=== PATIENT | female | born 1960 | race Caucasian/White ===

== ENCOUNTER 2016-12-28 07:12 | Day surgery (SDC) | payer BC ==
[2016-12-28] MEDS ORDERED: Triamcinolone Acetonide 40 MG/ML 1 ML MDV ONE (07:17)
[2016-12-28] MEDS ORDERED: Bupivacaine 0.25%/EPINEPHrine 1:200,000 10 ML SDV ONE (07:18)
[2016-12-28] MEDS ORDERED: Lidocaine 2% 5 ML SDV ONE (07:18)
[2016-12-28] MEDS ORDERED: Midazolam 1 MG/ML 2 ML SDV ONE (07:18)
[2016-12-28] MEDS ORDERED: Bupivacaine 0.25% 10 ML SDV ONE (07:18)
[2016-12-28] MEDS ORDERED: fentaNYL 100 MCG/2 ML SDV ONE (07:18)
[2016-12-28] MEDS ORDERED: Propofol 200 MG/20 ML SDV ONE (07:18)
--- NOTE | 2016-12-28 07:57 | PCM.PREANE ---
Preanesthetic Assessment - Anesthesia/Transfusion/Family Hx Anesthesia History: Prior Anesthesia Reaction Other Type of Anesthesia Reaction Comment: only after hysterectomy Family History of Anesthesia Reaction: No Transfusion History: No Prior Transfusion(s) - Review of Systems General: No Symptoms Pulmonary: No Symptoms Cardiovascular: No Symptoms Gastrointestinal: No Symptoms Neurological: No Symptoms Other: Reports: None - Physical Assessment NPO Status Date: 12/27/16 Height: 1.68 m Weight: 81.193 kg ASA Class: 2 Mental Status: Alert & Oriented x3 Airway Class: Mallampati = 2 Dentition: Reports: Normal Dentition ROM/Head Extension: Full Lungs: Clear to Auscultation, Normal Respiratory Effort Cardiovascular: Regular Rate, Regular Rhythm - Allergies Allergies/Adverse Reactions: Allergies Allergy/AdvReac Type Severity Reaction Status Date / Time No Known Allergies Allergy Verified 12/26/16 16:37 - Anesthesia Plan Pre-Op Medication Ordered: None - Acknowledgements Anesthesia Type Planned: MAC Pt an Appropriate Candidate for the Planned Anesthesia: Yes Alternatives and Risks of Anesthesia Discussed w Pt/Guardian: Yes Pt/Guardian Understands and Agrees with Anesthesia Plan: Yes PreAnesthesia Questionnaire Other HEENT History: wears glasses/contacts - Past Surgical History HEENT Surgical History: Reports: Naso-Sinus Surgery Female Surgical History: Reports: Endometrial Ablation, Hysterectomy Musculoskeletal Surgical History: Reports: Arthroscopic Knee - SUBSTANCE USE Smoking Status *Q: Never Smoker Days Per Week of Alcohol Use: 0 Recreational Drug Use History: No - HOME MEDS Home Medications: Home Meds . [No Known Home Meds] 12/26/16 [History] - CURRENT (IN HOUSE) MEDS Current Meds: Current Medications Hydrocodone Bitart/Acetaminophen ([place] 325-5 Mg) 1 tab PO Q4H PRN PRN Reason: Pain Bupivacaine HCl (Sensorcaine-Mpf 0.25%) 10 ml INJECT ONETIME ONE Stop: 12/28/16 08:01 Cefazolin Sodium/Dextrose 2 gm (/ Premix) 50 mls @ 100 mls/hr IV ONETIME ONE Stop: 12/28/16 08:29 Lactated Ringer's (Ringers, Lactated) 1,000 mls @ 125 mls/hr IV ASDIRECTED SHANNON Last Admin: 12/28/16 07:44 Dose: 125 mls/hr Triamcinolone Acetonide (Kenalog-40) 20 mg INJECT ONETIME ONE Stop: 12/28/16 08:01 Discontinued Medications Bupivacaine HCl (Sensorcaine-Mpf 0.25%) Confirm Administered Dose 10 ml .ROUTE .STK-MED ONE Stop: 12/28/16 07:19 Bupivacaine HCl/Epinephrine Bitart (Marcaine 0.25%/Epinephrine 1:200,000) Confirm Administered Dose 10 ml .ROUTE .STK-MED ONE Stop: 12/28/16 07:19 Fentanyl (Sublimaze) Confirm Administered Dose 100 mcg .ROUTE .STK-MED ONE Stop: 12/28/16 07:19 Lidocaine (Xylocaine-Mpf 2%) Confirm Administered Dose 5 ml .ROUTE .STK-MED ONE Stop: 12/28/16 07:19 Midazolam HCl (Versed 1 Mg/Ml) Confirm Administered Dose 2 mg .ROUTE .STK-MED ONE Stop: 12/28/16 07:19 Propofol (Diprivan 20 Ml) Confirm Administered Dose 200 mg .ROUTE .STK-MED ONE Stop: 12/28/16 07:19 Triamcinolone Acetonide (Kenalog-40) Confirm Administered Dose 40 mg .ROUTE .STK -MED ONE Stop: 12/28/16 07:18
[2016-12-28] MEDS ORDERED: Lactated Ringers 1,000 ML IV SCH (08:00)
[2016-12-28] MEDS ORDERED: Bupivacaine 0.25% 10 ML SDV INJECT ONE (08:00)
[2016-12-28] MEDS ORDERED: Acetaminophen/HYDROcodone 325-5 MG Tab PO PRN (08:00)
[2016-12-28] MEDS ORDERED: Triamcinolone Acetonide 40 MG/ML 1 ML MDV INJECT ONE (08:00)
[2016-12-28] MEDS ORDERED: ceFAZolin 2 GM in Premix Bag 1 BAG IV ONE (08:00)
[2016-12-28] MEDS ORDERED: Sodium Chloride 0.9% 20 ML ONE (08:53)
[2016-12-28] MEDS ORDERED: ceFAZolin 1 GM Vial ONE (08:53)
--- NOTE | 2016-12-28 09:34 | PCM48HPAN ---
Post Anesthesia Note - EVALUATION WITHIN 48HRS OF ANESTHETIC Vital Signs in Normal Range: Yes Patient Participated in Evaluation: Yes Respiratory Function Stable: Yes Airway Patent: Yes Cardiovascular Function Stable: Yes Hydration Status Stable: Yes Pain Control Satisfactory: Yes Nausea and Vomiting Control Satisfactory: Yes Mental Status Recovered: Yes
[2016-12-28 09:56] VITALS: BP 136/86
--- NOTE | 2017-01-04 14:26 | PCM.OPNOTE ---
- General Post-Op/Procedure Note Date of Surgery/Procedure: 12/28/16 Operative Procedure(s): right carpal tunnel release and injection of left thumb cmc joint Pre Op Diagnosis: right carpal tunnel syndrome and left thumb cmc arthritis Post-Op Diagnosis: Same Anesthesia Technique: Local, MAC Primary Surgeon: Henrietta Dixon Client Architect: Lizabeth Alexis Complications: None Condition: Good Free Text/Narrative:: [id number]
--- NOTE | 2017-01-04 19:13 | OR ---
SURGEON: BA HOWARD MD DATE OF PROCEDURE: 12/28/2016 PREOPERATIVE DIAGNOSES: Right carpal tunnel syndrome and left thumb carpometacarpal joint arthritis. POSTOPERATIVE DIAGNOSES: Right carpal tunnel syndrome and left thumb carpometacarpal joint arthritis. PROCEDURE: Right carpal tunnel release and left thumb injection of carpometacarpal joint with Kenalog 40. ANESTHESIA: Local MAC. HOSPITAL RECEIVING CLERK: SEBASTIÁN Garner. INDICATIONS: Ms. Rubin is a 56-year-old female with right carpal tunnel syndrome. Risks and benefits of release were discussed with her and she was in agreement to proceed. Risks were including, but not limited to, bleeding, infection, damage to underlying or overlying structures, possible need for intervention and possible scarring. She was in agreement to proceed. PROCEDURE IN DETAIL: After informed consent was obtained and placed on the chart, the patient was brought to the operating theater and laid in supine position. After adequate local MAC anesthetic was obtained, the area was prepped and draped and a time- out was completed to confirm side and site. Attention was then paid to exsanguination of the arm and insufflation of the tourniquet to 200 mmHg after injection of local anesthesia. Attention was then paid to dissection of the transverse carpal ligament and a 15 blade was used to dissect through the skin and subcutaneous tissues until complete release of the ligament. Once adequately released and dissection distally and proximally had been completed under direct visualization the area was irrigated and of note, the recurrent motor branch of the nerve did come straight through the ligament itself, this was protected and freed well without compromise. Once adequately released and freed, the area was irrigated and closed using 5-0 nylon stitch in a horizontal mattress fashion for the skin. This was dressed with Xeroform, fluffs, and a Kerlix gauze dressing and a 2-inch Max wrap. Attention was then paid to the left thumb and under sterile technique a 27-gauge needle and a 1 mL of Kenalog 40 was injected into the left thumb carpometacarpal joint. She tolerated this well. All counts and needles were correct at the end of the case and this was dressed with Band-Aid. FOLLOWUP INSTRUCTIONS: The patient will see us in 2 weeks for suture removal, sooner if any problems, questions, or concerns. EDDIE / KARISSA /[id number]
== END 2016-12-28 09:50 | disposition home or self-care (01) ==
LOC: MW.SDS 07:12
PROVIDERS: ATTEND Plastic Surgery
DX: G56.01 Carpal tunnel syndrome, right upper limb (principal); M18.9 Osteoarthritis of first carpometacarpal joint, unspecified; F41.9 Anxiety disorder, unspecified; Z90.710 Acquired absence of both cervix and uterus; Z79.890 Hormone replacement therapy
CPT/HCPCS: 20600; 64721; J0690; J2250; J3010; J3301; J7120; 01810; J2704

== ENCOUNTER 2017-03-18 07:29 | Inpatient (IN) | payer BC ==
[~2017-03-18 07:29] MED LIST: Acetaminophen 1,000 MG in Premix Bag 1 BAG IV SCH; Famotidine 20 MG/2 ML SDV IVPUSH SCH; Ketorolac 30 MG/ML SDV IVPUSH SCH; Ropivacaine 49.25 ML, Ketorolac 30 MG, EPINEPHrine 0.5 MG, cloNIDine 80 MCG in Sodium C... INJECT ONE; Scopolamine 1.5 MG Transdermal Patch TRDERM SCH; ceFAZolin 2 GM in Premix Bag 1 BAG IV SCH; oxyCODONE ER 20 MG TAB.ER PO SCH
[2017-03-18] MEDS: Lactated Ringers 1,000 ML IV SCH ×2 (07:50→19:21)
[2017-03-18] MEDS ORDERED: Ondansetron 4 MG/2 ML SDV ONE (08:38)
[2017-03-18] MEDS ORDERED: Midazolam 1 MG/ML 2 ML SDV ONE (08:39)
[2017-03-18] MEDS ORDERED: Propofol 200 MG/20 ML SDV ONE (08:39)
[2017-03-18] MEDS ORDERED: fentaNYL 100 MCG/2 ML SDV ONE (08:39)
--- NOTE | 2017-03-18 09:05 | PCM.PREANE ---
Preanesthetic Assessment - Anesthesia/Transfusion/Family Hx Anesthesia History: Prior Anesthesia Reaction Other Type of Anesthesia Reaction Comment: only after hysterectomy Family History of Anesthesia Reaction: No Transfusion History: No Prior Transfusion(s) - Review of Systems General: No Symptoms Pulmonary: No Symptoms Cardiovascular: No Symptoms Gastrointestinal: No Symptoms Neurological: No Symptoms Other: Reports: None - Physical Assessment NPO Status Date: 03/17/17 O2 Sat by Pulse Oximetry: 96 Respiratory Rate: 16 Vital Signs: Last Vital Signs Temp 36.2 C 03/18/17 07:40 Pulse 72 03/18/17 07:40 Resp 16 03/18/17 07:40 BP 164/86 H 03/18/17 07:40 Pulse Ox 96 03/18/17 07:40 Height: 1.68 m Weight: 82.1 kg ASA Class: 1 Mental Status: Alert & Oriented x3 Airway Class: Mallampati = 1 Dentition: Reports: Normal Dentition ROM/Head Extension: Full Lungs: Clear to Auscultation, Normal Respiratory Effort Cardiovascular: Regular Rate, Regular Rhythm - Allergies Allergies/Adverse Reactions: Allergies Allergy/AdvReac Type Severity Reaction Status Date / Time No Known Allergies Allergy Verified 03/18/17 08:28 - Anesthesia Plan Pre-Op Medication Ordered: None - Acknowledgements Anesthesia Type Planned: Spinal Pt an Appropriate Candidate for the Planned Anesthesia: Yes Alternatives and Risks of Anesthesia Discussed w Pt/Guardian: Yes Pt/Guardian Understands and Agrees with Anesthesia Plan: Yes PreAnesthesia Questionnaire HEENT History: Reports: Other (See Below) Other HEENT History: wears glasses/contacts - Past Surgical History Head Surgeries/Procedures: Reports: None HEENT Surgical History: Reports: Naso-Sinus Surgery Female Surgical History: Reports: Endometrial Ablation, Hysterectomy Musculoskeletal Surgical History: Reports: Arthroscopic Knee - SUBSTANCE USE Smoking Status *Q: Never Smoker Days Per Week of Alcohol Use: 0 Recreational Drug Use History: No - HOME MEDS Home Medications: Home Meds . [No Known Home Meds] 03/13/17 [History] - CURRENT (IN HOUSE) MEDS Current Meds: Current Medications Famotidine (Pepcid) 40 mg IVPUSH ONARRIVE [facility] Last Admin: 03/18/17 08:06 Dose: 40 mg Cefazolin Sodium/Dextrose 2 gm (/ Premix) 50 mls @ 100 mls/hr IV ONCALL [facility] Lactated Ringer's (Ringers, Lactated) 1,000 mls @ 100 mls/hr IV ASDIRECTED [facility]ANN[facility] Last Admin: 03/18/17 07:50 Dose: 100 mls/hr Acetaminophen 1,000 mg/ Premix 100 mls @ 400 mls/hr IV ONCALL [facility] Last Admin: 03/18/17 08:11 Dose: 400 mls/hr Ketorolac Tromethamine (Toradol) 30 mg IVPUSH ONARRIVE [facility] Last Admin: 03/18/17 08:08 Dose: 30 mg Oxycodone HCl (Oxycontin) 20 mg PO ONARRIVE [facility] Last Admin: 03/18/17 07:50 Dose: 20 mg Scopolamine (Transderm-Scop) 1.5 mg TRDERM ONARRIVE [facility] Last Admin: 03/18/17 08:08 Dose: 1.5 mg Tranexamic Acid (Cyklokapron) 4,000 mg IV SEECOMMENT [facility] Discontinued Medications Fentanyl (Sublimaze) Confirm Administered Dose 100 mcg .ROUTE .STK-MED ONE Stop: 03/18/17 08:40 Ropivacaine 49.25 ml/Ketorolac Tromethamine 30 mg/Epinephrine HCl 0.5 mg/ Clonidine HCl 80 mcg/ Sodium Chloride 100 mls @ 50 mls/min INJECT ONETIME ONE Stop: 03/18/17 06:01 Midazolam HCl (Versed 1 Mg/Ml) Confirm Administered Dose 2 mg .ROUTE .STK-MED ONE Stop: 03/18/17 08:40 Ondansetron HCl (Zofran) Confirm Administered Dose 4 mg .ROUTE .STK-MED ONE Stop: 03/18/17 08:39 Propofol (Diprivan 20 Ml) Confirm Administered Dose 800 mg .ROUTE .STK-MED ONE Stop: 03/18/17 08:40 Tranexamic Acid (Cyklokapron) Confirm Administered Dose 4,000 mg .ROUTE .STK- MED ONE Stop: 03/18/17 07:54
[2017-03-18] MEDS ORDERED: Acetaminophen/HYDROcodone 325-10 MG Tab PO PRN (11:31)
[2017-03-18] MEDS ORDERED: Ondansetron 4 MG/2 ML SDV IV PRN (11:31)
[2017-03-18] MEDS ORDERED: Bisacodyl 10 MG Supp RECTAL PRN (11:32)
[2017-03-18] MEDS ORDERED: Aluminum Hydroxide/Magnesium Hydroxide/Simethicone Susp 30 ML Cup PO PRN (11:32)
[2017-03-18] MEDS ORDERED: diphenhydrAMINE 25 MG Cap PO PRN (11:32)
--- NOTE | 2017-03-18 11:41 | PCM.OPNOTE ---
- General Post-Op/Procedure Note Date of Surgery/Procedure: 03/18/17 Operative Procedure(s): L TKA Post-Op Diagnosis: DJD left knee Anesthesia Technique: Moderate Sedation, Spinal Primary Surgeon: Jessica Suero Fusing Machine Operator: Josefina Chin in mLs: 100 Condition: Good Free Text/Narrative:: tt=10 min Intake & Output #[id number] 03/17/17 03/18/17 03/18/17 22:59 06:59 14:59 Output Total 300 Balance -300
[2017-03-18] MEDS ORDERED: Morphine PF 30 MG/30 ML PCA Vial IV SCH (11:45)
--- NOTE | 2017-03-18 12:05 | PCM.POSTAN ---
POST ANESTHESIA ASSESSMENT - MENTAL STATUS Mental Status: Alert, Oriented - RESPIRATORY Respiratory Status: Respiratory Rate WNL, Airway Patent, O2 Saturation Stable - CARDIOVASCULAR CV Status: Pulse Rate WNL, Blood Pressure Stable - GASTROINTESTINAL GI Status: No Symptoms - PAIN Pain Score: 0 - POST OP HYDRATION Hydration Status: Adequate & Stable - OBSERVATIONS Free Text/Narrative:: Sensory level t10
[2017-03-18] MEDS ORDERED: diphenhydrAMINE 50 MG/ML SDV ONE (12:09)
[2017-03-18] MEDS: Ketorolac 30 MG/ML SDV IVPUSH SCH ×2 (16:57→23:18)
--- NOTE | 2017-03-18 17:17 | OR ---
SURGEON: Jessica Suero MD DATE OF PROCEDURE: 03/18/2017 PREOPERATIVE DIAGNOSIS: Degenerative joint disease, left knee, tricompartmental. POSTOPERATIVE DIAGNOSIS: Degenerative joint disease, left knee, tricompartmental. PROCEDURE: Left total knee arthroplasty using patient-specific instrumentation. MINE ADMINISTRATOR SUPERVISOR: Josefina Chin PA-C. ANESTHESIA: Spinal sedation. ESTIMATED BLOOD LOSS: 100 mL. TOURNIQUET TIME: 10 minutes. COMPLICATIONS: None. DVT PROPHYLAXIS: PAS boot and CALIN hose to the nonoperative leg. IMPLANTS USED: Zainab Persona femoral component size 7 standard (LPS), tibial component size E, 10 mm all-polyethylene articular surface, and 32 mm all-polyethylene patella. INTRAOPERATIVE FINDINGS: Showed severe tricompartmental degenerative changes with mild osteophyte formation. Grade 4 chondromalacia was noted in all three compartments. No significant synovitis was noted. BRIEF HISTORY: Olivia is a 56-year-old female who has had complaint of progressive left knee pain. She had failed conservative treatment. Due to her lack of response to conservative treatment, I did recommend surgical intervention. The risks and goals of procedure were discussed with the patient and were documented preoperatively. She agreed to proceed. DESCRIPTION OF PROCEDURE: The patient was properly identified and brought to the operating room. The patient was then transferred from the operating room cart and placed on the operating table in a supine position. Anesthesia was administered by the anesthesia staff. After adequate anesthesia was obtained, a well-padded tourniquet was applied to the surgical lower extremity. De Paz catheter was placed. The lower extremity was then prepped in standard fashion using ChloraPrep solution. It was then sterilely draped. A time-out was performed to ensure correct site and procedure. Preoperative antibiotics were given along with one gram of tranexamic acid IV. The surgical site had been marked preoperatively. An incision was made over the anterior aspect of the knee. The subcutaneous tissues were dissected down to the level of the fascia. A medial parapatellar approach to the knee was made. A portion of the infrapatellar fat pad was then excised. The distal femur was then exposed. The femoral patient-specific cutting guide was then placed. Pins were also placed. The distal femoral cutting block was placed and the distal femoral cut was made. Instrumentation was then removed. Both Whitesides' line and the epicondylar axis were then marked with electrocautery. The 4-in-1 cutting block was placed. This was placed in a slightly externally rotated position, which corresponded well with the previously drawn lines. The cutting guide was then pinned into position. An Ray wing guide was used to check the depth of resection of our anterior condylar cut and it was felt that no notching would occur. The anterior condylar cut was then made followed by the posterior condylar cut. Both the posterior chamfer and anterior chamfer cuts were then made. The cutting block was then removed along with the excess bony remnants. We then turned our attention to the tibia. The anterior cruciate ligament and posterior cruciate ligament were released and a posterior cruciate ligament retractor was placed to allow the tibia to be pulled anteriorly. The tibial patient-specific guide was then placed on the proximal tibia. This fit anatomically. The pins were then placed. The proximal tibia cutting guide was then placed and screwed into position. The proximal tibial resection was then made with care being taken to protect the patellar tendon. The bony resection was then removed. The remainder of the medial and lateral meniscus were then excised. Care was taken to protect the popliteus tendon. The tibia was then sized to the appropriate size. The distal femur was then elevated. The posterior capsule was stripped off of the distal femur both medially and laterally. The posterior capsule along with the medial and lateral gutters were then injected with a standard mixture consisting of clonidine, epinephrine, Toradol, and Ropivacaine, unless any allergies were found preoperatively. The femoral component was then placed onto the distal femur in a slightly lateral position. This fit the femur well. A box cut was then made without difficulty. This was then removed. The tibial trial along with the polyethylene liner was then placed. The knee came easily into full extension and was stable to varus and valgus stressing both in full extension and flexion. Any additional releases were performed at this time. We then returned our attention to the patella. The patella was everted and towel clamps were used to hold the patella in position. It was resected to a 15 millimeter thickness. It was then sized to the appropriate size. It was prepared in the usual fashion after placing the predetermined size clamps. This was placed in a slightly superior and medial position. The clamp was then removed. The patellar trial button was placed. The knee was taken through a range of motion using the no-touch technique. The patella tracked centrally. A drop jonas was then placed to check alignment. All instruments were then removed from the knee. The tibial sizer was then placed on the tibia. The tibia was prepared in the usual fashion using the reamer and broach. This was then removed. All bony surfaces were copiously irrigated with Pulsavac solution. They were then suctioned dry. Cement was prepared on the back table in the usual manner. An Esmarch was used to exsanguinate the right lower extremity and the tourniquet was inflated.Once it was prepared, the bone ends were again suctioned dry. The tibia was cemented into place first. This was malleted into position. Excess cement was then cleared. The femur was then placed in a similar manner. We placed the polyethylene trial into place and the knee was brought into full extension. An axial load was placed while keeping the knee in full extension. The patella button was also cemented into position and the clamp was used to hold this in place as the cement was allowed to cure. The wound was again copiously irrigated with saline solution using a Pulsavac alteration tailor apprentice. Following this 1 g of tranexamic acid was applied to the wound topically. After we had adequate curing of the cement, the knee was again taken through a range of motion. The size of the polyethylene was then determined. The polyethylene trial was then removed. The tibial tray was suctioned to make sure there was no remaining soft tissue or cement. Excess cement was cleared from around the edges of the prosthesis as well. The tourniquet was then deflated. We were able to observe for any excess bleeding and none was noted. Electrocautery was used to maintain hemostasis. An additional gram of tranexamic acid was given IV. The retractors were again placed and the predetermined polyethylene was then placed. This was locked into position without difficulty. The knee was again taken through a range of motion with no change from the prior exam. The fascial layer was closed with Number One Vicryl. The subcutaneous tissues were closed with 2-0 Vicryl. The skin was closed with aly. Xeroform gauze was placed over the wound and a bulky dressing was applied. The patient was then awakened from anesthesia and transferred back to the operating room cart. They were brought to the recovery room in stable condition. All needle and sponge counts were correct. TUNDE / KARISSA /[id number] MTDD
[2017-03-18] MEDS: ceFAZolin 2 GM in Premix Bag 1 BAG IV SCH (18:16)
[2017-03-18] MEDS: Docusate Sodium 100 MG Cap PO SCH (20:58)
[2017-03-18] MEDS: oxyCODONE ER 10 MG TAB.ER PO SCH (20:58)
[2017-03-19] MEDS: ceFAZolin 2 GM in Premix Bag 1 BAG IV SCH (01:04)
[2017-03-19] MEDS: Lactated Ringers 1,000 ML IV SCH (05:42)
[2017-03-19] MEDS ORDERED: Sodium Chloride 0.9% 2.5 ML Syringe FLUSH PRN (08:16)
[2017-03-19] MEDS ORDERED: Sodium Chloride 0.9% 10 ML Syringe FLUSH PRN (08:16)
--- NOTE | 2017-03-19 08:18 | PCM.SURGPN ---
- General Info Date of Service: 03/19/17 Date of Surgery/Procedure: 03/18/17 POD#: 1 Functional Status: Reports: Pain Controlled, Tolerating Diet, Ambulating, Urinating - Review of Systems General: Reports: No Symptoms HEENT: Reports: No Symptoms Pulmonary: Reports: No Symptoms Cardiovascular: Reports: No Symptoms Gastrointestinal: Reports: No Symptoms Genitourinary: Reports: No Symptoms Musculoskeletal: Reports: Leg Pain, Joint Pain, Joint Swelling Neurological: Reports: Dizziness Psychiatric: Reports: No Symptoms - Patient Data Vitals - Most Recent: Last Vital Signs Temp 36.7 C 03/19/17 04:00 Pulse 73 03/19/17 04:00 Resp 16 03/19/17 04:00 BP 100/81 03/19/17 04:00 Pulse Ox 96 03/19/17 04:00 Weight - Most Recent: 82.1 kg I&O - Last 24 Hours: Intake & Output 03/18/17 03/19/17 03/19/17 22:59 06:59 14:59 Intake Total 1247 2225 Output Total 150 1350 Balance 1097 875 Lab Results Last 24 Hrs: Laboratory Results - last 24 hr 03/18/17 03/19/17 Range/Units 07:59 06:55 Hgb 10.6 L (12.0-16.0) g/dL Hct 33.2 L (36.0-46.0) % Blood Type A POSITIVE Antibody Screen NEGATIVE Med Orders - Current: Current Medications Hydrocodone Bitart/Acetaminophen ([place] 325-10 Mg) 1 - 2 tab PO Q4H PRN PRN Reason: Pain Al Hydroxide/Mg Hydroxide (Mag-Al Plus) 30 ml PO Q4H PRN PRN Reason: indigestion Aspirin (Aspirin) 325 mg PO BID [facility] Bisacodyl (Dulcolax) 10 mg RECTAL DAILY PRN PRN Reason: Constipation Celecoxib (Celebrex) 200 mg PO BID [facility] Diphenhydramine HCl (Benadryl) 25 - 50 mg PO Q6H PRN PRN Reason: Itching Docusate Sodium (Colace) 100 mg PO BID [facility] Last Admin: 03/18/17 20:58 Dose: 100 mg Famotidine (Pepcid) 40 mg PO DAILY [facility] Lactated Ringer's (Ringers, Lactated) 1,000 mls @ 100 mls/hr IV ASDIRECTED [facility] Last Admin: 03/19/17 05:42 Dose: 100 mls/hr Ondansetron HCl (Zofran) 4 mg IV Q6HR PRN PRN Reason: NAUSEA/VOMITING Oxycodone HCl (Oxycontin) 20 mg PO ONARRIVE [facility] Last Admin: 03/18/17 07:50 Dose: 20 mg Oxycodone HCl (Oxycontin) 10 mg PO Q12HR [facility] Last Admin: 03/18/17 20:58 Dose: 10 mg Sodium Chloride (Saline Flush) 10 ml FLUSH ASDIRECTED PRN PRN Reason: Keep Vein Open Sodium Chloride (Saline Flush) 2.5 ml FLUSH ASDIRECTED PRN PRN Reason: Keep Vein Open Discontinued Medications Diphenhydramine HCl (Benadryl) Confirm Administered Dose 50 mg .ROUTE .STK-MED ONE Stop: 03/18/17 12:10 Famotidine (Pepcid) 40 mg IVPUSH ONARRIVE [facility] Last Admin: 03/18/17 08:06 Dose: 40 mg Fentanyl (Sublimaze) Confirm Administered Dose 100 mcg .ROUTE .STK-MED ONE Stop: 03/18/17 08:40 Cefazolin Sodium/Dextrose 2 gm (/ Premix) 50 mls @ 100 mls[facility] Ropiv[facility]aine 49.25 ml/Ketorolac Tromethamine 30 mg/Epinephrine HCl 0.5 mg/ Clonidine HCl 80 mcg/ Sodium Chloride 100 mls @ 50 mls/min INJECT ONETIME ONE Stop: 03/18/17 06:01 Acetaminophen 1,000 mg/ Premix 100 mls @ 400 mls/hr IV ONCALL [facility] Last Admin: 03/18/17 08:11 Dose: 400 mls/hr Cefazolin Sodium/Dextrose 2 gm (/ Premix) 50 mls @ 100 mls/hr IV Q8H [facility] Stop: 03/19/17 02:29 Last Admin: 03/19/17 01:04 Dose: 100 mls/hr Ketorolac Tromethamine (Toradol) 30 mg IVPUSH ONARRIVE [facility] Last Admin: 03/18/17 08:08 Dose: 30 mg Ketorolac Tromethamine (Toradol) 30 mg IVPUSH Q6H [facility] Stop: 03/19/17 04:00 Last Admin: 03/18/17 23:18 Dose: 30 mg Midazolam HCl (Versed 1 Mg/Ml) Confirm Administered Dose 2 mg .ROUTE .STK-MED ONE Stop: 03/18/17 08:40 Morphine Sulfate (Morphine Electrical Design Technologist 30 Mg In 30 Ml) 30 mg IV ASDIRECTED [facility] PRN Reason: Protocol Last Admin: 03/18/17 11:59 Dose: 30 mg Ondansetron HCl (Zofran) Confirm Administered Dose 4 mg .ROUTE .STK-MED ONE Stop: 03/18/17 08:39 Propofol (Diprivan 20 Ml) Confirm Administered Dose 800 mg .ROUTE .STK-MED ONE Stop: 03/18/17 08:40 Scopolamine (Transderm-Scop) 1.5 mg TRDERM ONARRIVE [facility] Last Admin: 03/18/17 08:08 Dose: 1.5 mg Tranexamic Acid (Cyklokapron) 4,000 mg IV SEECOMMENT [facility] Tranexamic Acid (Cyklokapron) Confirm Administered Dose 4,000 mg .ROUTE .STK- MED ONE Stop: 03/18/17 07:54 - Exam General: Alert, Oriented HEENT: Pupils Equal, Pupils Reactive Neck: Trachea Midline Lungs: Normal Respiratory Effort Cardiovascular: Regular Rate Extremities: Other (Left anterior tibialis, extensor hallucis longus and gastrocnemius strength +5/5 bilaterally. Sensation intact. Dorsalis pedis and posterior tibial pulses +2 bilaterally. ) Neurological: No New Focal Deficit Psy/Mental Status: Alert, Normal Affect, Normal Mood - Problem List Review Problem List Initiated/Reviewed/Updated: Yes - My Orders Last 24 Hours: Active Orders 24 hr Category Date Time Status Admission Status [Patient Status] [ADT] Routine ADT 03/18/17 12:35 Active Activity as Tolerated [RC] .Routine Care 03/18/17 11:31 Active Dressing Change [Wound Care] [RC] Q12H Care 03/18/17 11:31 Active Intake and Output [RC] Q12H Care 03/18/17 11:31 Active Neurovascular Check [RC] Q2HR Care 03/18/17 11:31 Active Notify Provider Vital Signs [RC] ASDIRECTED Care 03/18/17 11:31 Active RT Incentive Spirometry [RC] ASDIRECTED Care 03/18/17 11:31 Active Urinary Catheter Removal [RC] Per Unit Routine Care 03/19/17 08:16 Ordered Vital Signs [RC] Q4H Care 03/18/17 11:31 Active PT Evaluation and Treatment [CONS] Routine Cons 03/18/17 11:30 Active Knee 1V or 2V Lt [CR] Routine Exams 03/18/17 09:29 Taken HEMOGLOBIN/HEMATOCRIT,HH [HEME] DAILY Lab 03/20/17 06:00 Ordered HEMOGLOBIN/HEMATOCRIT,HH [HEME] DAILY Lab 03/21/17 06:00 Ordered Acetaminophen/HYDROcodone [[place] 325-10 MG] Med 03/18/17 11:31 Active 1 - 2 tab PO Q4H PRN Alum Hydrox/Mag Hydrox/Simeth [Mag-Al Plus] Med 03/18/17 11:32 Active 30 ml PO Q4H PRN Aspirin Med 03/19/17 09:00 Active 325 mg PO BID Bisacodyl [Dulcolax] Med 03/18/17 11:32 Active 10 mg RECTAL DAILY PRN Celecoxib [CeleBREX] Med 03/19/17 09:00 Active 200 mg PO BID Docusate Sodium [Colace] Med 03/18/17 21:00 Active 100 mg PO BID Famotidine [Pepcid] Med 03/19/17 09:00 Active 40 mg PO DAILY Ondansetron [Zofran] Med 03/18/17 11:31 Active 4 mg IV Q6HR PRN Sodium Chloride 0.9% [Saline Flush] Med 03/19/17 08:16 Ordered 10 ml FLUSH ASDIRECTED PRN Sodium Chloride 0.9% [Saline Flush] Med 03/19/17 08:16 Ordered 2.5 ml FLUSH ASDIRECTED PRN diphenhydrAMINE [Benadryl] Med 03/18/17 11:32 Active 25 - 50 mg PO Q6H PRN oxyCODONE ER [OxyCONTIN] Med 03/18/17 21:00 Active 10 mg PO Q12HR Convert IV to Saline Lock [OM.PC] Routine Oth 03/19/17 08:16 Ordered Ice Therapy [OM.PC] Routine Oth 03/18/17 11:31 Ordered Obtain Home Medication List [OM.PC] Routine Oth 03/18/17 11:30 Ordered Medication Orders Hydrocodone Bitart/Acetaminophen ([place] 325-10 Mg) 1 - 2 tab PO Q4H PRN PRN Reason: Pain Al Hydroxide/Mg Hydroxide (Mag-Al Plus) 30 ml PO Q4H PRN PRN Reason: indigestion Aspirin (Aspirin) 325 mg PO BID [facility] Bisacodyl (Dulcolax) 10 mg RECTAL DAILY PRN PRN Reason: Constipation Celecoxib (Celebrex) 200 mg PO BID [facility] Diphenhydramine HCl (Benadryl) 25 - 50 mg PO Q6H PRN PRN Reason: Itching Docusate Sodium (Colace) 100 mg PO BID [facility] Last Admin: 03/18/17 20:58 Dose: 100 mg Famotidine (Pepcid) 40 mg PO DAILY [facility] Lactated Ringer's (Ringers, Lactated) 1,000 mls @ 100 mls/hr IV ASDIRECTED [facility] Last Admin: 03/19/17 05:42 Dose: 100 mls/hr Infusion: 03/19/17 05:21 Dose: 100 mls/hr Admin: 03/18/17 19:21 Dose: 100 mls/hr Infusion: 03/18/17 17:50 Dose: 100 mls/hr Admin: 03/18/17 07:50 Dose: 100 mls/hr Ondansetron HCl (Zofran) 4 mg IV Q6HR PRN PRN Reason: NAUSEA/VOMITING Oxycodone HCl (Oxycontin) 20 mg PO ONARRIVE [facility] Last Admin: 03/18/17 07:50 Dose: 20 mg Oxycodone HCl (Oxycontin) 10 mg PO Q12HR [facility] Last Admin: 03/18/17 20:58 Dose: 10 mg Sodium Chloride (Saline Flush) 10 ml FLUSH ASDIRECTED PRN PRN Reason: Keep Vein Open Sodium Chloride (Saline Flush) 2.5 ml FLUSH ASDIRECTED PRN PRN Reason: Keep Vein Open - Assessment Assessment (Free Text/Narrative):: Patient up to heena this AM. Tolerating diet. Pain well controlled. Does report dizziness this AM. VSS Hgb 10.6. UO 2080 mL. - Plan Plan (Free Text/Narrative):: Continue physical therapy. Continue pain management. Discontinue Morphine MANAGER BRIDGE. Discontinue Scop patch due to dizziness. Start Aspirin 325 mg PO BID for DVT prophylaxis. Discharge home this afternoon.
[2017-03-19] MEDS: oxyCODONE ER 10 MG TAB.ER PO SCH (08:54)
[2017-03-19] MEDS: Docusate Sodium 100 MG Cap PO SCH (08:55)
[2017-03-19] MEDS ORDERED: Aspirin 325 MG Tab PO SCH (09:00)
[2017-03-19] MEDS ORDERED: Famotidine 20 MG Tab PO SCH (09:00)
[2017-03-19] MEDS ORDERED: Celecoxib 100 MG Cap PO SCH (09:00)
[2017-03-19 11:21] VITALS: BP 136/63
--- NOTE | 2017-03-20 08:08 | PCM.SN ---
- Free Text/Narrative Note: Discharge Summary Dressing changed prior to discharge. Dictation #: [id number]
--- NOTE | 2017-03-21 03:32 | DISCH ---
DATE OF DISCHARGE: 03/19/2017 PRIMARY CARE PHYSICIAN: ROGELIO Florez ADMITTING DIAGNOSIS: Degenerative joint disease, left knee, tricompartmental. OTHER MEDICAL DIAGNOSIS: None. DISCHARGE DIAGNOSIS: Status post left total knee arthroplasty. BRIEF HISTORY: Patient is a 56-year-old female has a complaint of progressive left knee pain. She has failed conservative treatment. Due to her lack of response to conservative treatment, surgical intervention was recommended at that time. OPERATION: Left total knee arthroplasty. HOSPITAL COURSE: Pain was controlled with a combination of IV and p.o. pain medications. The patient was followed by Physical therapy during her hospital stay. She did receive 2 doses of Ancef postoperatively for 24 hours of antibiotic coverage. Aspirin 325 mg p.o. b.i.d. was started on postop day 1 for DVT prophylaxis. Pain is currently controlled with p.o. pain medications only. The patient is ambulating with a walker and tolerating oral intake. She feels comfortable with discharge home today. Hemoglobin on day of discharge and was 10.6. DISCHARGE MEDICATIONS: 1. Celebrex 20 mg. 2. Aspirin 325 mg. 3. Colace 100 mg. 4. [place] 10/325 mg. 5. OxyContin 20 mg. DISCHARGE INSTRUCTIONS: 1. CALIN hose to bilateral lower extremities, on in the morning and off in the evening. 2. Outpatient physical therapy 2-3 times per week for 4-6 weeks. 3. Follow up in the clinic on the March 28, 2017. This appointment was made for the patient. 4. Polar Care to the left knee. For complete medication reconciliation and discharge instructions, please refer to the patient's EHR. Should the patient have questions or concerns prior to followup, she has been advised to return to clinic or call. ASHLEY / KARISSA /[id number] DARWIN
--- NOTE | 2017-03-27 08:33 | CR ---
AP and lateral left knee Clinical history: Postop Comparison: None prior postop Findings: There is a total knee prosthesis articulating normally into planes. Skin clips are present anteriorly and a small amount of intra-articular air is noted. Impression: Anatomically correct left total knee implant
== END 2017-03-19 13:35 | disposition home or self-care (01) | DRG 302 ==
LOC: MW.MS 07:29
PROVIDERS: ADMIT Orthopaedic Surgery; ATTEND Orthopaedic Surgery
PROC: 0SRD0J9 Replacement of Left Knee Joint with Synthetic Substitute, Cemented, Open Approach (ICD-10-PCS; principal; 2017-03-18)
DX: M17.12 Unilateral primary osteoarthritis, left knee (principal); M94.262 Chondromalacia, left knee; M25.762 Osteophyte, left knee
CPT/HCPCS: 01402; 36415; 73560-26-LT; 73560-LT; 85014; 85018; 86850; 86900; 86901; 88304; 88311; 97110-GP; 97161-GP; 97530-GP; A9270-GY; C1713; C1776; J0171; J0690; J0735; J1200; J1885; J2250; J2274; J2405; J2704; J2795; J3010; J7050; J7120

== ENCOUNTER 2019-01-28 21:03 | Emergency (ER) | payer BC ==
[2019-01-28] MEDS ORDERED: Sodium Chloride 0.9% 1,000 ML IV ONE ×2 (21:26→22:50)
[2019-01-28] MEDS ORDERED: Ketorolac 30 MG/ML SDV IVPUSH ONE (21:26)
[2019-01-28] MEDS ORDERED: Sodium Chloride 0.9% 2.5 ML Syringe FLUSH PRN (21:26)
[2019-01-28] MEDS ORDERED: Sodium Chloride 0.9% 10 ML Syringe FLUSH PRN (21:26)
--- NOTE | 2019-01-28 21:26 | EDM.PDOC ---
ED HPI GENERAL MEDICAL PROBLEM - General Chief Complaint: General Stated Complaint: WEAKNESS,TIRED Time Seen by Provider: 01/28/19 21:18 - History of Present Illness INITIAL COMMENTS - FREE TEXT/NARRATIVE: HISTORY AND PHYSICAL: History of present illness: The patient is a 58-year-old female who follows in our family practice clinic and presents with a 2 day history of generalized weakness fatigue and malaise, she had a fever at the onset of the symptoms of 101 and took Estephania[place] and has not had a documented fever since but has felt feverish and chilly. The patient says that she felt like she had some sinus drainage and a slight cough and thought this might be influenza and she had it last year. She's had no abdominal pain nausea or vomiting but has had diarrhea today which is loose but not watery and she has had 6 episodes without black or blood. She has not followed up with her provider in the clinic about these issues and does not have a sore throat or earache. She currently has a nonproductive cough which is just occasional but she did have one episode of some phlegm today and she is not a smoker. She has no shortness of breath or chest pain. She has no urinary symptoms. She has been trying to push Pedialyte at home. Review of systems: As per history of present illness and below otherwise all systems reviewed and negative. Past medical history: As per history of present illness and as reviewed below otherwise noncontributory. Surgical history: As per history of present illness and as reviewed below otherwise noncontributory. Social history: No reported history of drug or alcohol abuse. Family history: As per history of present illness and as reviewed below otherwise noncontributory. Physical exam: General: Well-developed well-nourished female who is nontoxic and vital signs are noted by me. HEENT: Atraumatic, normocephalic, pupils reactive, negative for conjunctival pallor or scleral icterus, mucous membranes moist, throat clear, neck supple, nontender, trachea midline. Lungs: Clear to auscultation, breath sounds equal bilaterally, chest nontender. No worker breathing wheezing or stridor and a dry cough is appreciated in the ED Heart: S1S2, regular, negative for clicks, rubs, or JVD. Abdomen: Soft, nondistended, nontender. Negative for masses or hepatosplenomegaly. Negative for costovertebral tenderness. Pelvis: Stable nontender. Genitourinary: Deferred. Rectal: Deferred. Extremities: Atraumatic, negative for cords or calf pain. Neurovascular unremarkable. No pedal edema Neuro: Awake, alert, oriented. Cranial nerves II through XII unremarkable. Cerebellum unremarkable. Motor and sensory unremarkable throughout. Exam nonfocal. Diagnostics: Chest x-ray CBC CMP magnesium level lactic acid UA with reflex influenza Therapeutics: IV fluids Toradol Patient and at bedside are aware of testing results and need for follow- up in the clinic. I will give her more IV fluids to encourage urine output and she has not produced any stool here in the ED for testing. She is aware that she does need to take it easy and follow-up push hydration and follow her symptoms. Impression: Diarrhea fevers body aches and mild dehydration Definitive disposition and diagnosis as appropriate pending reevaluation and review of above. - Related Data Allergies Allergy/AdvReac Type Severity Reaction Status Date / Time No Known Allergies Allergy Verified 01/28/19 21:15 Home Meds: Home Meds Aspirin 325 mg PO BID #90 tablet 03/19/17 [Rx] Celecoxib [CeleBREX] 200 mg PO BID #45 cap 03/19/17 [Rx] Docusate Sodium [Colace] 100 mg PO BID #60 cap 03/19/17 [Rx] Hydrocodone/Acetaminophen [[place] 10-325 Tablet] 1 - 2 tab PO Q4H PRN #80 tablet 03/19/17 [Rx] oxyCODONE ER [OxyCONTIN] 20 mg PO ONARRIVE #20 tab.er 03/19/17 [Rx] Past Medical History HEENT History: Reports: Other (See Below) Other HEENT History: wears glasses/contacts Cardiovascular History: Reports: None Respiratory History: Reports: None Gastrointestinal History: Reports: None Genitourinary History: Reports: None CHIEF OPTOMETRY SERVICE History: Reports: Musculoskeletal History: Reports: None Neurological History: Reports: None Psychiatric History: Reports: None Endocrine/Metabolic History: Reports: None Insulin Pump Model and Water Quality Manager: None Hematologic History: Reports: None Immunologic History: Reports: None Oncologic (Cancer) History: Reports: None Dermatologic History: Reports: None - Infectious Disease History Infectious Disease History: Reports: None - Past Surgical History Head Surgeries/Procedures: Reports: None HEENT Surgical History: Reports: Naso-Sinus Surgery Female Surgical History: Reports: Endometrial Ablation, Hysterectomy Musculoskeletal Surgical History: Reports: Arthroscopic Knee, Knee Replacement Social & Family History - Family History Family Medical History: Noncontributory - Tobacco Use Smoking Status *Q: Never Smoker - Caffeine Use Caffeine Use: Reports: Tea - Recreational Drug Use Recreational Drug Use: No ED ROS GENERAL - Review of Systems Review Of Systems: Comprehensive ROS is negative, except as noted in HPI. ED EXAM, GENERAL - Physical Exam Exam: See Below (see dictation) Course - Vital Signs Last Recorded V/S: Last Vital Signs Temp 36.9 C 01/28/19 21:15 Pulse 85 01/28/19 22:53 Resp 18 01/28/19 22:53 BP 158/88 H 01/28/19 22:53 Pulse Ox 97 01/28/19 22:53 - Orders/Labs/Meds Orders: Active Orders 24 hr Category Date Time Status Communication Order [RC] STAT Care 01/28/19 21:29 Active Sodium Chloride 0.9% [Saline Flush] Med 01/28/19 21:26 Active 10 ml FLUSH ASDIRECTED PRN Sodium Chloride 0.9% [Saline Flush] Med 01/28/19 21:26 Active 2.5 ml FLUSH ASDIRECTED PRN Saline Lock Insert [OM.PC] Stat Oth 01/28/19 21:25 Ordered Medication Orders Sodium Chloride (Saline Flush) 10 ml FLUSH ASDIRECTED PRN PRN Reason: Keep Vein Open Sodium Chloride (Saline Flush) 2.5 ml FLUSH ASDIRECTED PRN PRN Reason: Keep Vein Open Labs: Laboratory Tests 01/28/19 01/28/19 01/28/19 Range/Units 21:35 21:35 21:35 WBC 9.21 (4.0-11.0) K/uL RBC 4.70 (4.30-5.90) M/uL Hgb 13.4 (12.0-16.0) g/dL Hct 40.5 (36.0-46.0) % MCV 86.2 (80.0-98.0) fL MCH 28.5 (27.0-32.0) pg MCHC 33.1 (31.0-37.0) g/dL RDW Std Deviation 42.9 (28.0-62.0) fl RDW Coeff of Justin 14 (11.0-15.0) % Plt Count 273 (150-400) K/uL MPV 9.80 (7.40-12.00) fL Neut % (Auto) 71.5 (48.0-80.0) % Lymph % (Auto) 18.8 (16.0-40.0) % White % (Auto) 8.1 (0.0-15.0) % Eos % (Auto) 1.4 (0.0-7.0) % Baso % (Auto) 0.2 (0.0-1.5) % Neut # (Auto) 6.6 H (1.4-5.7) K/uL Lymph # (Auto) 1.7 (0.6-2.4) K/uL White # (Auto) 0.8 (0.0-0.8) K/uL Eos # (Auto) 0.1 (0.0-0.7) K/uL Baso # (Auto) 0.0 (0.0-0.1) K/uL Nucleated RBC % 0.0 /100WBC Nucleated RBCs # 0 K/uL Lactate 2.3 H* (0.20-2.00) mmol/L Sodium 141 (136-145) mmol/L Potassium 3.9 (3.5-5.1) mmol/L Chloride 104 (98-107) mmol/L Carbon Dioxide 24.1 (21.0-32.0) mmol/L BUN 17 (7.0-18.0) mg/dL Creatinine 0.9 (0.6-1.0) mg/dL Est Cr Clr Drug Dosing 63.01 mL/min Estimated GFR (MDRD) > 60.0 ml/min Glucose 125 H (74-106) mg/dL Calcium 9.3 (8.5-10.1) mg/dL Magnesium 1.9 (1.8-2.4) mg/dL Total Bilirubin 0.2 (0.2-1.0) mg/dL AST 26 (15-37) IU/L ALT 34 (14-63) IU/L Alkaline Phosphatase 100 (46-116) U/L Total Protein 7.9 (6.4-8.2) g/dL Albumin 3.9 (3.4-5.0) g/dL Globulin 4.0 (2.6-4.0) g/dL Albumin/Globulin Ratio 1.0 (0.9-1.6) Urine Color Urine Appearance Urine pH (5.0-8.0) Ur Specific [place] (1.001-1.035) Urine Protein (NEGATIVE) mg/dL Urine Glucose (UA) (NEGATIVE) mg/dL Urine Ketones (NEGATIVE) mg/dL Urine Occult Blood (NEGATIVE) Urine Nitrite (NEGATIVE) Urine Bilirubin (NEGATIVE) Urine Urobilinogen (<2.0) EU/dL Ur Leukocyte Esterase (NEGATIVE) 01/28/19 Range/Units 23:40 WBC (4.0-11.0) K/uL RBC (4.30-5.90) M/uL Hgb (12.0-16.0) g/dL Hct (36.0-46.0) % MCV (80.0-98.0) fL MCH (27.0-32.0) pg MCHC (31.0-37.0) g/dL RDW Std Deviation (28.0-62.0) fl RDW Coeff of Justin (11.0-15.0) % Plt Count (150-400) K/uL MPV (7.40-12.00) fL Neut % (Auto) (48.0-80.0) % Lymph % (Auto) (16.0-40.0) % White % (Auto) (0.0-15.0) % Eos % (Auto) (0.0-7.0) % Baso % (Auto) (0.0-1.5) % Neut # (Auto) (1.4-5.7) K/uL Lymph # (Auto) (0.6-2.4) K/uL White # (Auto) (0.0-0.8) K/uL Eos # (Auto) (0.0-0.7) K/uL Baso # (Auto) (0.0-0.1) K/uL Nucleated RBC % /100WBC Nucleated RBCs # K/uL Lactate (0.20-2.00) mmol/L Sodium (136-145) mmol/L Potassium (3.5-5.1) mmol/L Chloride (98-107) mmol/L Carbon Dioxide (21.0-32.0) mmol/L BUN (7.0-18.0) mg/dL Creatinine (0.6-1.0) mg/dL Est Cr Clr Drug Dosing mL/min Estimated GFR (MDRD) ml/min Glucose (74-106) mg/dL Calcium (8.5-10.1) mg/dL Magnesium (1.8-2.4) mg/dL Total Bilirubin (0.2-1.0) mg/dL AST (15-37) IU/L ALT (14-63) IU/L Alkaline Phosphatase (46-116) U/L Total Protein (6.4-8.2) g/dL Albumin (3.4-5.0) g/dL Globulin (2.6-4.0) g/dL Albumin/Globulin Ratio (0.9-1.6) Urine Color YELLOW Urine Appearance CLEAR Urine pH 6.0 (5.0-8.0) Ur Specific [place] 1.020 (1.001-1.035) Urine Protein NEGATIVE (NEGATIVE) mg/dL Urine Glucose (UA) NEGATIVE (NEGATIVE) mg/dL Urine Ketones NEGATIVE (NEGATIVE) mg/dL Urine Occult Blood NEGATIVE (NEGATIVE) Urine Nitrite NEGATIVE (NEGATIVE) Urine Bilirubin NEGATIVE (NEGATIVE) Urine Urobilinogen 0.2 (<2.0) EU/dL Ur Leukocyte Esterase NEGATIVE (NEGATIVE) Meds: Medications Generic Name Dose Route Start Last Admin Trade Name Matq PRN Reason Stop Dose Admin Sodium Chloride 10 ml 01/28/19 21:26 Saline Flush FLUSH ASDIRECTED PRN Keep Vein Open Sodium Chloride 2.5 ml 01/28/19 21:26 Saline Flush FLUSH ASDIRECTED PRN Keep Vein Open Discontinued Medications Generic Name Dose Route Start Last Admin Trade Name Juan PRN Reason Stop Dose Admin Sodium Chloride 1,000 mls @ 999 mls/hr 01/28/19 21:26 01/28/19 21:52 Normal Saline IV 01/28/19 22:26 999 mls/hr STAT ONE Administration Sodium Chloride 1,000 mls @ 999 mls/hr 01/28/19 22:50 01/28/19 23:00 Normal Saline IV 01/28/19 23:50 999 mls/hr STAT ONE Administration Ketorolac Tromethamine 30 mg 01/28/19 21:26 01/28/19 21:52 Toradol IVPUSH 01/28/19 21:27 30 mg ONETIME ONE Administration Departure - Departure Time of Disposition: 23:57 Disposition: Home, Self-Care 01 Condition: Good Clinical Impression: Generalized body aches Fever Qualifiers: Fever type: unspecified Qualified Code(s): R50.9 - Fever, unspecified Diarrhea Qualifiers: Diarrhea type: unspecified type Qualified Code(s): R19.7 - Diarrhea, unspecified - Discharge Information Referrals: Isma Aviles MD [Primary Care Provider] - Forms: ED Department Discharge Additional Instructions: The following information is given to patients seen in the emergency department who are being discharged to home. This information is to outline your options for follow-up care. We provide all patients seen in our emergency department with a follow-up referral. The need for follow-up, as well as the timing and circumstances, are variable depending upon the specifics of your emergency department visit. If you don't have a primary care physician on staff, we will provide you with a referral. We always advise you to contact your personal physician following an emergency department visit to inform them of the circumstance of the visit and for follow-up with them and/or the need for any referrals to a consulting specialist. The emergency department will also refer you to a specialist when appropriate. This referral assures that you have the opportunity for followup care with a specialist. All of these measure are taken in an effort to provide you with optimal care, which includes your followup. Under all circumstances we always encourage you to contact your private physician who remains a resource for coordinating your care. When calling for followup care, please make the office aware that this follow-up is from your recent emergency room visit. If for any reason you are refused follow-up, please contact the [facility] emergency department at and ask to speak to the emergency department charge nurse. [facility] Primary care- Internal Medicine and Family [address] [address] Please call and schedule a follow-up appointment in the clinic with your provider or one of his associates for follow-up care and reevaluation. Push hydration and rest and continue to monitor your diarrhea symptoms. Use over-the- counter Tylenol or ibuprofen for fever and use the Bentyl you have been given for diarrhea or cramping. Please drink electrolyte rich solutions and eat bananas and other potassium-rich foods. Return to ER as needed and as discussed - My Orders Last 24 Hours: My Active Orders 01/28/19 21:25 Saline Lock Insert [OM.PC] Stat 01/28/19 21:26 Sodium Chloride 0.9% [Saline Flush] 10 ml FLUSH ASDIRECTED PRN Sodium Chloride 0.9% [Saline Flush] 2.5 ml FLUSH ASDIRECTED PRN 01/28/19 21:29 Communication Order [RC] STAT - Assessment/Plan Last 24 Hours: My Active Orders 01/28/19 21:25 Saline Lock Insert [OM.PC] Stat 01/28/19 21:26 Sodium Chloride 0.9% [Saline Flush] 10 ml FLUSH ASDIRECTED PRN Sodium Chloride 0.9% [Saline Flush] 2.5 ml FLUSH ASDIRECTED PRN 01/28/19 21:29 Communication Order [RC] STAT
[2019-01-28 22:07] LABS: BLOOD UREA NITROGEN,BUN 17 mg/dL (7.0-18.0); CARBON DIOXIDE,CO2 24.1 mmol/L (21.0-32.0); CHLORIDE,CL 104 mmol/L (98-107); GLUCOSE RANDOM 125 mg/dL (74-106); POTASSIUM,K 3.9 mmol/L (3.5-5.1); SODIUM,NA 141 mmol/L (136-145)
--- NOTE | 2019-01-28 22:31 | CR ---
INDICATION: Flu-like symptoms. COMPARISON: None available. FINDINGS: PA and lateral views of the chest were obtained. The lungs are clear. No focal or diffuse infiltrates are present. The heart is normal in size. The mediastinum is normal in appearance. The osseous structures are normal in appearance for the patient`s age. IMPRESSION: Normal chest 2 views. Dictated by Darvin Guzman MD @ Jan 28 2019 10:28PM Signed by Dr. Darvin Guzman @ Jan 28 2019 10:29PM
[2019-01-29 00:11] VITALS: BP 151/80; PULSE 83
== END 2019-01-29 00:19 | disposition home or self-care (01) ==
LOC: MW.ED 21:03
DX: E86.0 Dehydration (principal); R19.7 Diarrhea, unspecified; R50.9 Fever, unspecified; M79.10 Myalgia, unspecified site; Z79.82 Long term (current) use of aspirin
CPT/HCPCS: 71046; 80053; 81003; 83605; 83735; 85025; 87804; 96361; 96374; 99285; J1885; J7030; 99283

== ENCOUNTER 2019-11-15 17:41 | Emergency (ER) | payer BC ==
[2019-11-15] MEDS ORDERED: Aspirin 81 MG Tab.Chew PO ONE (17:48)
[2019-11-15] MEDS ORDERED: Famotidine 20 MG/2 ML SDV IVPUSH ONE (17:48)
[2019-11-15] MEDS ORDERED: Sodium Chloride 0.9% 2.5 ML Syringe FLUSH PRN ×2 (17:48)
[2019-11-15] MEDS: Sodium Chloride 0.9% 10 ML Syringe FLUSH PRN ×3 (17:55→20:11)
[2019-11-15] MEDS ORDERED: Ondansetron 4 MG/2 ML SDV IVPUSH ONE (18:11)
--- NOTE | 2019-11-15 18:12 | EDM.PDOC ---
<Manuel Allison - Last Filed: 11/15/19 18:32> ED HPI GENERAL MEDICAL PROBLEM - General Chief Complaint: Chest Pain Stated Complaint: CHEST PAIN Time Seen by Provider: 11/15/19 17:44 - History of Present Illness INITIAL COMMENTS - FREE TEXT/NARRATIVE: History of present illness: Patient presents with a sudden onset of epigastric pain that she describes as sharp that makes her somewhat short of breath and radiates to between her shoulder blades. Chest some nausea with it no vomiting no leg pain or leg swelling no fever chills or cough she does have a recent diagnosis of sarcoidosis and has been having a lot of shortness of breath today from that she believes she has never had the epigastric pain before she denies any diarrhea foreign travel or other complaints. Nothing seems to make it better or worse Review of systems: As per history of present illness and below otherwise all systems reviewed and negative. Past medical history: As per history of present illness and as reviewed below otherwise noncontributory. Surgical history: As per history of present illness and as reviewed below otherwise noncontributory. Social history: No reported history of drug or alcohol abuse. Family history: As per history of present illness and as reviewed below otherwise noncontributory. Physical exam: HEENT: Atraumatic, normocephalic, pupils reactive, negative for conjunctival pallor or scleral icterus, mucous membranes moist, throat clear, neck supple, nontender, trachea midline. Lungs: Clear to auscultation, breath sounds equal bilaterally, chest nontender. Heart: S1S2, regular, negative for clicks, rubs, or JVD. Abdomen: Soft, nondistended, mild epigastric tenderness without rebound. Negative for masses or hepatosplenomegaly. Negative for costovertebral tenderness. Pelvis: Stable nontender. Genitourinary: Deferred. Rectal: Deferred. Extremities: Atraumatic, negative for cords or calf pain. Neurovascular unremarkable. Neuro: Awake, alert, oriented. Cranial nerves II through XII unremarkable. Cerebellum unremarkable. Motor and sensory unremarkable throughout. Exam nonfocal. Diagnostics: [] Therapeutics: [] Impression: Epigastric pain we will evaluate her with lab studies get some medicine for stomach acid and nausea EKG chest x-ray and reassess [] Plan: [] Definitive disposition and diagnosis as appropriate pending reevaluation and review of above. chest Pain Score (Numeric/FACES): 8 - Related Data Allergies Allergy/AdvReac Type Severity Reaction Status Date / Time No Known Allergies Allergy Verified 11/15/19 17:54 Home Meds: Home Meds Aspirin 325 mg PO BID #90 tablet 03/19/17 [Rx] Celecoxib [CeleBREX] 200 mg PO BID #45 cap 03/19/17 [Rx] Docusate Sodium [Colace] 100 mg PO BID #60 cap 03/19/17 [Rx] Hydrocodone/Acetaminophen [[place] 10-325 Tablet] 1 - 2 tab PO Q4H PRN #80 tablet 03/19/17 [Rx] oxyCODONE ER [OxyCONTIN] 20 mg PO ONARRIVE #20 tab.er 03/19/17 [Rx] Past Medical History HEENT History: Reports: Other (See Below) Other HEENT History: wears glasses/contacts Cardiovascular History: Reports: None Respiratory History: Reports: None Gastrointestinal History: Reports: None Genitourinary History: Reports: None 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: Musculoskeletal History: Reports: None Neurological History: Reports: None Psychiatric History: Reports: None Endocrine/Metabolic History: Reports: None 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 Hematologic History: Reports: None Immunologic History: Reports: None Oncologic (Cancer) History: Reports: None Dermatologic History: Reports: None - Infectious Disease History Infectious Disease History: Reports: None - Past Surgical History Head Surgeries/Procedures: Reports: None HEENT Surgical History: Reports: Naso-Sinus Surgery Other Respiratory Surgeries/Procedures: sarcoidosis Female Surgical History: Reports: Endometrial Ablation, Hysterectomy Musculoskeletal Surgical History: Reports: Arthroscopic Knee, Knee Replacement Social & Family History - Family History Family Medical History: Noncontributory - Tobacco Use Smoking Status *Q: Never Smoker - Caffeine Use Caffeine Use: Reports: Tea - Recreational Drug Use Recreational Drug Use: No ED ROS GENERAL - Review of Systems Review Of Systems: See Below ED EXAM, GENERAL - Physical Exam Exam: See Below EKG INTERPRETATION EKG Interpretation Comments: EKG is normal sinus rhythm 87 bpm normal axis normal intervals no ischemic changes read and interpreted by me Course - Vital Signs Text/Narrative:: One-view portable chest read and interpreted by me no acute cardiopulmonary pathology is evident Departure - Departure Disposition: Home, Self-Care 01 Clinical Impression: Gallstones - Discharge Information Instructions: Cholelithiasis Referrals: PCP,None [Primary Care Provider] - Forms: ED Department Discharge Additional Instructions: [facility] - General Surgery Professional Building [address] [place] [address], [address] [place] [address] Follow-up with surgery by calling number provided to establish consultation appointment. Also follow-up with primary care doctor. Take medications as previously prescribed. Return to the ER with any new or worsening symptoms. The following information is given to patients seen in the emergency department who are being discharged to home. This information is to outline your options for follow-up care. We provide all patients seen in our emergency department with a follow-up referral. The need for follow-up, as well as the timing and circumstances, are variable depending upon the specifics of your emergency department visit. If you don't have a primary care physician on staff, we will provide you with a referral. We always advise you to contact your personal physician following an emergency department visit to inform them of the circumstance of the visit and for follow-up with them and/or the need for any referrals to a consulting specialist. The emergency department will also refer you to a specialist when appropriate. This referral assures that you have the opportunity for follow-up care with a specialist. All of these measure are taken in an effort to provide you with optimal care, which includes your follow-up. Under all circumstances we always encourage you to contact your private physi shirley who remains a resource for coordinating your care. When calling for follow- up care, please make the office aware that this follow-up is from your recent emergency room visit. If for any reason you are refused follow-up, please contact the [facility] Emergency Department at and asked to speak to the emergency department charge nurse. Sepsis Event Note (ED) - Evaluation Sepsis Screening Result: No Definite Risk <Kareem Lima - Last Filed: 11/15/19 21:20> EKG INTERPRETATION EKG Date: 11/15/19 Time: 17:42 Rhythm: NSR Rate (Beats/Min): 87 [place]: Normal P-Wave: Present QRS: Normal ST-T: Depressed (flattened T waves in V2-V3.) QT: Normal Course - Vital Signs Text/Narrative:: Serial troponins are negative. Ultrasound shows gallstones, but no convincing evidence for cholecystitis. Patient is free of any pain here now in the ER. I discussed with her the findings of her work-up. I believe she is appropriate for outpatient management, following up with a surgical consult in the outpatient setting, with strict return precautions provided for new or worsening symptoms including intractable nausea vomiting, severe worsening pain, persi stent high fever, etc. Patient was agreeable this plan and stable at time of discharge. Last Recorded V/S: Last Vital Signs Temp 35.3 C L 11/15/19 17:50 Pulse 83 11/15/19 20:43 Resp 14 11/15/19 20:43 BP 143/80 H 11/15/19 20:43 Pulse Ox 94 L 11/15/19 20:43 - Orders/Labs/Meds Orders: Active Orders 24 hr Category Date Time Status EKG Documentation Completion [RC] STAT Care 11/15/19 17:48 Active Sodium Chloride 0.9% [Saline Flush] Med 11/15/19 17:48 Active 10 ml FLUSH ASDIRECTED PRN Sodium Chloride 0.9% [Saline Flush] Med 11/15/19 17:48 Active 2.5 ml FLUSH ASDIRECTED PRN Sodium Chloride 0.9% [Saline Flush] Med 11/15/19 17:48 Active 2.5 ml FLUSH ASDIRECTED PRN Saline Lock Insert [OM.PC] Stat Oth 11/15/19 17:48 Ordered Medication Orders Sodium Chloride (Saline Flush) 10 ml FLUSH ASDIRECTED PRN PRN Reason: Keep Vein Open Last Admin: 11/15/19 20:11 Dose: 10 ml Documented by: Admin: 11/15/19 17:57 Dose: 10 ml Documented by: Admin: 11/15/19 17:55 Dose: 10 ml Documented by: TRINO Sodium Chloride (Saline Flush) 2.5 ml FLUSH ASDIRECTED PRN PRN Reason: Keep Vein Open Sodium Chloride (Saline Flush) 2.5 ml FLUSH ASDIRECTED PRN PRN Reason: Keep Vein Open Labs: Laboratory Tests 11/15/19 11/15/19 11/15/19 Range/Units 17:45 17:45 20:15 WBC 6.49 (4.0-11.0) K/uL RBC 5.21 (4.30-5.90) M/uL Hgb 14.6 (12.0-16.0) g/dL Hct 43.7 (36.0-46.0) % MCV 83.9 (80.0-98.0) fL MCH 28.0 (27.0-32.0) pg MCHC 33.4 (31.0-37.0) g/dL RDW Std Deviation 40.3 (28.0-62.0) fl RDW Coeff of Justin 13 (11.0-15.0) % Plt Count 342 (150-400) K/uL MPV 9.70 (7.40-12.00) fL Neut % (Auto) 47.7 L (48.0-80.0) % Lymph % (Auto) 38.8 (16.0-40.0) % [place] % (Auto) 10.5 (0.0-15.0) % Eos % (Auto) 2.5 (0.0-7.0) % Baso % (Auto) 0.5 (0.0-1.5) % Neut # (Auto) 3.1 (1.4-5.7) K/uL Lymph # (Auto) 2.5 H (0.6-2.4) K/uL [place] # (Auto) 0.7 (0.0-0.8) K/uL Eos # (Auto) 0.2 (0.0-0.7) K/uL Baso # (Auto) 0.0 (0.0-0.1) K/uL Nucleated RBC % 0.0 /100WBC Nucleated RBCs # 0 K/uL Sodium 139 (136-145) mmol/L Potassium 3.4 L (3.5-5.1) mmol/L Chloride 102 (98-107) mmol/L Carbon Dioxide 23.2 (21.0-32.0) mmol/L BUN 18 (7.0-18.0) mg/dL Creatinine 1.0 (0.6-1.0) mg/dL Est Cr Clr Drug Dosing 56.00 mL/min Estimated GFR (MDRD) 56.6 ml/min Glucose 144 H (74-106) mg/dL Calcium 9.6 (8.5-10.1) mg/dL Total Bilirubin 0.2 (0.2-1.0) mg/dL AST 32 (15-37) IU/L ALT 42 (14-63) IU/L Alkaline Phosphatase 126 H (46-116) U/L Troponin I < 0.050 (0.000-0.056) ng/mL Total Protein 8.0 (6.4-8.2) g/dL Albumin 4.3 (3.4-5.0) g/dL Globulin 3.7 (2.6-4.0) g/dL Albumin/Globulin Ratio 1.2 (0.9-1.6) Lipase 122 (73-393) U/L Urine Color YELLOW Urine Appearance CLEAR Urine pH 6.0 (5.0-8.0) Ur Specific [place] >= 1.030 (1.001-1.035) Urine Protein NEGATIVE (NEGATIVE) mg/dL Urine Glucose (UA) 100 H (NEGATIVE) mg/dL Urine Ketones TRACE H (NEGATIVE) mg/dL Urine Occult Blood NEGATIVE (NEGATIVE) Urine Nitrite NEGATIVE (NEGATIVE) Urine Bilirubin NEGATIVE (NEGATIVE) Urine Urobilinogen 0.2 (<2.0) EU/dL Ur Leukocyte Esterase TRACE H (NEGATIVE) Urine RBC 0-2 (0-2/HPF) Urine WBC 7-10 (0-5/HPF) Ur Epithelial Cells FEW (NONE-FEW) Urine Bacteria RARE (NEGATIVE) Urine Mucus LIGHT (NONE-MOD) 11/15/19 Range/Units 20:35 WBC (4.0-11.0) K/uL RBC (4.30-5.90) M/uL Hgb (12.0-16.0) g/dL Hct (36.0-46.0) % MCV (80.0-98.0) fL MCH (27.0-32.0) pg MCHC (31.0-37.0) g/dL RDW Std Deviation (28.0-62.0) fl RDW Coeff of Justin (11.0-15.0) % Plt Count (150-400) K/uL MPV (7.40-12.00) fL Neut % (Auto) (48.0-80.0) % Lymph % (Auto) (16.0-40.0) % [place] % (Auto) (0.0-15.0) % Eos % (Auto) (0.0-7.0) % Baso % (Auto) (0.0-1.5) % Neut # (Auto) (1.4-5.7) K/uL Lymph # (Auto) (0.6-2.4) K/uL [place] # (Auto) (0.0-0.8) K/uL Eos # (Auto) (0.0-0.7) K/uL Baso # (Auto) (0.0-0.1) K/uL Nucleated RBC % /100WBC Nucleated RBCs # K/uL Sodium (136-145) mmol/L Potassium (3.5-5.1) mmol/L Chloride (98-107) mmol/L Carbon Dioxide (21.0-32.0) mmol/L BUN (7.0-18.0) mg/dL Creatinine (0.6-1.0) mg/dL Est Cr Clr Drug Dosing mL/min Estimated GFR (MDRD) ml/min Glucose (74-106) mg/dL Calcium (8.5-10.1) mg/dL Total Bilirubin (0.2-1.0) mg/dL AST (15-37) IU/L ALT (14-63) IU/L Alkaline Phosphatase (46-116) U/L Troponin I < 0.050 (0.000-0.056) ng/mL Total Protein (6.4-8.2) g/dL Albumin (3.4-5.0) g/dL Globulin (2.6-4.0) g/dL Albumin/Globulin Ratio (0.9-1.6) Lipase (73-393) U/L Urine Color Urine Appearance Urine pH (5.0-8.0) Ur Specific [place] (1.001-1.035) Urine Protein (NEGATIVE) mg/dL Urine Glucose (UA) (NEGATIVE) mg/dL Urine Ketones (NEGATIVE) mg/dL Urine Occult Blood (NEGATIVE) Urine Nitrite (NEGATIVE) Urine Bilirubin (NEGATIVE) Urine Urobilinogen (<2.0) EU/dL Ur Leukocyte Esterase (NEGATIVE) Urine RBC (0-2/HPF) Urine WBC (0-5/HPF) Ur Epithelial Cells (NONE-FEW) Urine Bacteria (NEGATIVE) Urine Mucus (NONE-MOD) Meds: Medications Generic Name Dose Route Start Last Admin Trade Name Freq PRN Reason Stop Dose Admin Sodium Chloride 10 ml 09/20/20 17:48 11/15/19 20:11 Saline Flush FLUSH 10 ml ASDIRECTED PRN Administration Keep Vein Open Sodium Chloride 2.5 ml 11/15/19 17:48 Saline Flush FLUSH ASDIRECTED PRN Keep Vein Open Sodium Chloride 2.5 ml 11/15/19 17:48 Saline Flush FLUSH ASDIRECTED PRN Keep Vein Open Discontinued Medications Generic Name Dose Route Start Last Admin Trade Name Freq PRN Reason Stop Dose Admin Aspirin 324 mg 11/15/19 17:48 11/15/19 17:53 Aspirin PO 11/15/19 17:49 324 mg ONETIME ONE Administration Dicyclomine HCl 20 mg 11/15/19 18:58 11/15/19 20:11 Bentyl PO 11/15/19 18:59 20 mg ONETIME ONE Administration Famotidine 20 mg 11/15/19 17:48 11/15/19 17:53 Pepcid IVPUSH 11/15/19 17:49 20 mg ONETIME ONE Administration Ondansetron HCl 4 mg 11/15/19 18:11 11/15/19 20:10 Zofran IVPUSH 11/15/19 18:12 4 mg ONETIME ONE Administration Departure - Departure Time of Disposition: 21:19 Condition: Good Sepsis Event Note (ED) - Focused Exam Vital Signs: Vital Signs Temp Pulse Resp BP Pulse Ox 11/15/19 20:43 83 14 143/80 H 94 L 11/15/19 19:43 84 9 L 163/80 H 96 11/15/19 18:42 81 11 L 150/85 H 95 11/15/19 17:50 35.3 C L 97 16 190/96 H 99
--- NOTE | 2019-11-15 18:16 | CR ---
Chest: Portable view of the chest was obtained. Comparison: Prior chest x-ray of 03/11/19. Heart size is normal. Slight prominence within the right paratracheal region is seen as well as left hilum suspicious for slight adenopathy. Lungs are clear with no acute parenchymal change. Bony structures are grossly intact. Partially visualized degenerative change is noted within the spine. Impression: 1. Findings suspicious for slight adenopathy within the right paratracheal region and within the left hilum. I am given the history of recent diagnosis of sarcoid which these findings would be compatible with. 2. Nothing acute is otherwise seen on portable chest x-ray. Diagnostic code #3 This report was dictated in MDT
[2019-11-15 18:24] LABS: BLOOD UREA NITROGEN,BUN 18 mg/dL (7.0-18.0); CARBON DIOXIDE,CO2 23.2 mmol/L (21.0-32.0); CHLORIDE,CL 102 mmol/L (98-107); GLUCOSE RANDOM 144 mg/dL (74-106); LIPASE 122 U/L (73-393); POTASSIUM,K 3.4 mmol/L (3.5-5.1); SODIUM,NA 139 mmol/L (136-145)
[2019-11-15] MEDS ORDERED: Dicyclomine 10 MG Cap PO ONE (18:58)
--- NOTE | 2019-11-15 20:20 | US ---
Limited abdominal ultrasound: Multiple real-time images of the upper right abdomen were obtained. Liver is echogenic compared to the right kidney. This is most likely due to fatty infiltration. Liver is also slightly enlarged. Numerous gallstones are seen within the gallbladder. Gallbladder wall does not appear to be definitely thickened. No pericholecystic fluid is seen. Common bile duct measures within normal limits at 6 mm. Pancreas is incompletely seen. Visualized portions of the pancreas appear within normal limits. Aorta shows no aneurysm. Inferior vena cava is patent. Right kidney shows no hydronephrosis or mass. Right kidney has a length of 10.1 cm. Impression: 1. Multiple gallstones. No definite gallbladder wall thickening or biliary duct dilatation is seen. 2. Fatty infiltration within the liver with mild hepatomegaly. 3. No additional abnormality is appreciated on right upper quadrant abdominal ultrasound. Diagnostic code #3 This report was dictated in MDT
[2019-11-15 21:30] VITALS: BP 140/82; PULSE 74
== END 2019-11-15 21:35 | disposition home or self-care (01) ==
LOC: MW.ED 17:41
DX: K80.20 Calculus of gallbladder without cholecystitis without obstruction (principal); Z79.82 Long term (current) use of aspirin; Z79.899 Other long term (current) drug therapy
CPT/HCPCS: 36415; 71045; 76705; 80053; 81001; 83690; 84484; 85025; 93005; 96374; 96375; 99285; A9270; J2405; J3490

== ENCOUNTER 2019-12-15 11:10 | Day surgery (SDC) | payer BC ==
[~2019-12-15 11:10] MED LIST changes: -Acetaminophen 1,000 MG in Premix Bag 1 BAG IV SCH; -Famotidine 20 MG/2 ML SDV IVPUSH SCH; -Ketorolac 30 MG/ML SDV IVPUSH SCH; +Lactated Ringers 1,000 ML IV SCH; -Ropivacaine 49.25 ML, Ketorolac 30 MG, EPINEPHrine 0.5 MG, cloNIDine 80 MCG in Sodium C... INJECT ONE; -Scopolamine 1.5 MG Transdermal Patch TRDERM SCH; +Sodium Chloride 0.9% 10 ML SDV IV PRN; +Sodium Chloride 0.9% 10 ML Syringe FLUSH PRN; +Sodium Chloride 0.9% 2.5 ML Syringe FLUSH PRN; -ceFAZolin 2 GM in Premix Bag 1 BAG IV SCH; -oxyCODONE ER 20 MG TAB.ER PO SCH
[2019-12-15] MEDS ORDERED: Lidocaine 2% 5 ML SDV ONE (11:37)
[2019-12-15] MEDS ORDERED: Propofol 200 MG/20 ML SDV ONE (11:38)
[2019-12-15] MEDS ORDERED: Midazolam 1 MG/ML 2 ML SDV ONE (11:38)
[2019-12-15] MEDS ORDERED: fentaNYL 100 MCG/2 ML SDV ONE (11:38)
--- NOTE | 2019-12-15 11:49 | PCM.PREANE ---
Preanesthetic Assessment - Anesthesia/Transfusion/Family Hx Anesthesia History: Prior Anesthesia Reaction Other Type of Anesthesia Reaction Comment: only after hysterectomy Family History of Anesthesia Reaction: No Transfusion History: No Prior Transfusion(s) Intubation History: Unknown - Review of Systems General: No Symptoms Pulmonary: No Symptoms Cardiovascular: No Symptoms Gastrointestinal: Abdominal Pain, Nausea Other: Reports: None - Physical Assessment Height: 5 ft 6 in Weight: 87.09 kg ASA Class: 2 Mental Status: Alert & Oriented x3 Airway Class: Mallampati = 2 Dentition: Reports: Normal Dentition Thyro-Mental Finger Breadths: 3 Mouth Opening Finger Breadths: 3 ROM/Head Extension: Full Lungs: Clear to Auscultation, Normal Respiratory Effort Cardiovascular: Regular Rate, Regular Rhythm - Allergies Allergies/Adverse Reactions: Allergies Allergy/AdvReac Type Severity Reaction Status Date / Time No Known Allergies Allergy Verified 12/09/19 11:54 - Blood Blood Available: No - Anesthesia Plan Pre-Op Medication Ordered: None - Acknowledgements Anesthesia Type Planned: MAC Pt an Appropriate Candidate for the Planned Anesthesia: Yes Alternatives and Risks of Anesthesia Discussed w Pt/Guardian: Yes Pt/Guardian Understands and Agrees with Anesthesia Plan: Yes PreAnesthesia Questionnaire HEENT History: Reports: Other (See Below) Other HEENT History: wears glasses/contacts Cardiovascular History: Reports: Hypertension Other Respiratory History: Sarcoidosis in lung, occasional SOB, sats not lower than 97% Gastrointestinal History: Reports: None Genitourinary History: Reports: None 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: Musculoskeletal History: Reports: None Other Musculoskeletal History: 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 Neurological History: Reports: None Psychiatric History: Reports: Anxiety Endocrine/Metabolic History: Reports: Obesity/BMI 30+ (BMI 31) Hematologic History: Reports: None Immunologic History: Reports: None Oncologic (Cancer) History: Reports: None Dermatologic History: Reports: None - Infectious Disease History Infectious Disease History: Reports: None - Past Surgical History HEENT Surgical History: Reports: Naso-Sinus Surgery Other Respiratory Surgeries/Procedures: sarcoidosis GI Surgical History: Reports: Colonoscopy (10 years ago) Female Surgical History: Reports: Endometrial Ablation, Hysterectomy Musculoskeletal Surgical History: Reports: Arthroscopic Knee, Carpal Tunnel (right), Knee Replacement (left 03/13) - SUBSTANCE USE Tobacco Use Status *Q: Never Tobacco User Recreational Drug Use History: No - HOME MEDS Home Medications: Home Meds amLODIPine [Norvasc] 5 mg PO QAM 12/09/19 [History] - CURRENT (IN HOUSE) MEDS Current Meds: Current Medications Lactated Ringer's (Ringers, Lactated) 1,000 mls @ 125 mls/hr IV ASDIRECTED SHANNON Sodium Chloride (Saline Flush) 10 ml FLUSH ASDIRECTED PRN PRN Reason: Keep Vein Open Sodium Chloride (Saline Flush) 2.5 ml FLUSH ASDIRECTED PRN PRN Reason: Keep Vein Open Sodium Chloride (Saline Flush) 10 ml FLUSH ASDIRECTED PRN PRN Reason: Keep Vein Open Sodium Chloride (Saline Flush) 2.5 ml FLUSH ASDIRECTED PRN PRN Reason: Keep Vein Open Sodium Chloride (Normal Saline) 10 ml IV ASDIRECTED PRN PRN Reason: IV Use Discontinued Medications Fentanyl (Sublimaze) Confirm Administered Dose 100 mcg .ROUTE .STK-MED ONE Stop: 12/15/19 11:39 Lidocaine (Xylocaine-Mpf 2%) Confirm Administered Dose 5 ml .ROUTE .STK-MED ONE Stop: 12/15/19 11:38 Midazolam HCl (Versed 1 Mg/Ml) Confirm Administered Dose 2 mg .ROUTE .STK-MED ONE Stop: 12/15/19 11:39 Propofol (Diprivan 20 Ml) Confirm Administered Dose 400 mg .ROUTE .STK-MED ONE Stop: 12/15/19 11:39
[2019-12-15] MEDS ORDERED: Ondansetron 4 MG/2 ML SDV ONE (12:06)
--- NOTE | 2019-12-15 12:31 | PCM.POSTAN ---
POST ANESTHESIA ASSESSMENT - MENTAL STATUS Mental Status: Alert, Oriented - VITAL SIGNS Vital Signs: Last Vital Signs Temp 36.4 C 12/15/19 11:19 Pulse 101 H 12/15/19 11:19 Resp 16 12/15/19 11:19 BP 174/98 H 12/15/19 11:19 Pulse Ox 96 12/15/19 11:19 - RESPIRATORY Respiratory Status: Respiratory Rate WNL, Airway Patent, O2 Saturation Stable - CARDIOVASCULAR CV Status: Pulse Rate WNL, Blood Pressure Stable - GASTROINTESTINAL GI Status: No Symptoms - PAIN Pain Score: 0 - POST OP HYDRATION Hydration Status: Adequate & Stable - OBSERVATIONS Free Text/Narrative:: No anesthesia problems
--- NOTE | 2019-12-15 12:53 | PCM.POSTAN ---
POST ANESTHESIA ASSESSMENT - MENTAL STATUS Mental Status: Alert, Oriented - VITAL SIGNS Vital Signs: Last Vital Signs Temp 36.3 C 12/15/19 12:29 Pulse 94 12/15/19 12:48 Resp 15 12/15/19 12:48 BP 132/78 12/15/19 12:48 Pulse Ox 95 12/15/19 12:48 - RESPIRATORY Respiratory Status: Respiratory Rate WNL, Airway Patent, O2 Saturation Stable - CARDIOVASCULAR CV Status: Pulse Rate WNL, Blood Pressure Stable - GASTROINTESTINAL GI Status: No Symptoms - PAIN Pain Score: 0 - POST OP HYDRATION Hydration Status: Adequate & Stable - OBSERVATIONS Free Text/Narrative:: No anesthesia problems
[2019-12-15 13:03] VITALS: BP 148/77; PULSE 80
--- NOTE | 2019-12-15 13:13 | PCM48HPAN ---
Post Anesthesia Note - EVALUATION WITHIN 48HRS OF ANESTHETIC Vital Signs in Normal Range: Yes Patient Participated in Evaluation: Yes Respiratory Function Stable: Yes Airway Patent: Yes Cardiovascular Function Stable: Yes Hydration Status Stable: Yes Pain Control Satisfactory: Yes Nausea and Vomiting Control Satisfactory: Yes Mental Status Recovered: Yes Vital Signs: Last Vital Signs Temp 36.4 C 12/15/19 12:55 Pulse 80 12/15/19 12:55 Resp 14 12/15/19 12:55 BP 148/77 H 12/15/19 12:55 Pulse Ox 95 12/15/19 12:55 - COMMENTS/OBSERVATIONS Free Text/Narrative:: NO anesthesia problems
--- NOTE | 2019-12-15 13:48 | PCM.OPNOTE ---
- General Post-Op/Procedure Note Date of Surgery/Procedure: 12/15/19 Operative Procedure(s): Diagnostic EGD and colonoscopy Findings: Very small hiatal hernia. Otherwise normal EGD and colonoscopy Pre Op Diagnosis: Epigastric pain, screening colonoscopy Post-Op Diagnosis: Hiatal hernia, diverticulosis [place] [facility] [place]geon: Erica Solano Condition: Good Free Text/Narrative:: Intake & Output 12/14/19 12/15/19 12/15/19 22:59 06:59 14:59 Intake Total 925 Balance 925
--- NOTE | 2019-12-15 14:23 | OR ---
SURGEON: ERICA SOLANO MD DATE OF PROCEDURE: 12/15/2019 PREOPERATIVE DIAGNOSES: Epigastric pain, screening colonoscopy. POSTOPERATIVE DIAGNOSES: 1. Hiatal hernia. 2. Diverticulosis. PROCEDURES PERFORMED: Diagnostic esophagogastroduodenoscopy and colonoscopy. PRIMARY SURGEON: Erica Solano MD ANESTHESIA: MAC. INSTRUMENT USED: Olympus endoscope and colonoscope. EXTENT OF EXAM: To the second portion of duodenum, to the cecum. PREPARATION: Good. LIMITATIONS: None. INDICATIONS FOR EXAMINATION: The patient is a 59-year-old female who recently presented to the emergency room with epigastric pain. She was diagnosed with gallstones. The patient has been having pain associated with mealtime. She is overdue for colonoscopy. The patient and I discussed the need for diagnostic EGD and a screening colonoscopy. I explained the procedures, expected perioperative course, and risks. The patient verbalized understanding and wishes to proceed. PROCEDURE IN DETAIL: The patient was brought into the endoscopy suite and placed in the left lateral decubitus position. A time-out was completed verifying the patient's name, age, date of , allergies, and procedure to be performed. A bite block was placed in the patient's mouth. Monitored anesthesia care was induced and continuous oxygen was provided via nasal cannula throughout the procedure. After adequate sedation was achieved, a well-lubricated endoscope was placed in the patient's mouth and advanced under direct visualization to the second portion of duodenum. This appeared normal and a photograph was taken. The scope was then fully withdrawn while examining the color, texture, anatomy, and integrity of the upper GI tract. The duodenum appeared normal. The scope was brought into the stomach and a photograph was taken of the pylorus and GE junction. Both appeared grossly normal. The gastric mucosa was free of ulceration or inflammation. Biopsies were taken of the gastric antrum, body, and fundus and sent for histologic review and H. pylori testing. The scope was then brought into the distal esophagus. The patient was noted to have a very tiny hiatal hernia. A photograph of this was taken. A biopsy was taken 1 cm above the Z-line. There was no evidence of gross ulceration or esophagitis. The remainder of the esophagus was normal. The scope was removed and this portion of the procedure terminated. Digital rectal exam was performed. This exam was within normal limits. A well-lubricated colonoscope was inserted in the rectum and advanced under direct visualization to the level of the cecum. The cecum was identified by both visual and anatomic landmarks. A photograph was taken of the cecal cap; however, I was unable to retroflex the scope within the cecum due to looping of the scope more proximally. The scope was then fully withdrawn while examining the color, texture, anatomy, and integrity of the mucosa from the cecum to the anal canal. The patient was found to have mild diverticulosis within the sigmoid colon. Otherwise, the colonoscopy was normal. The scope was brought into the rectum and retroflexed to allow visualization of the anal canal opening. This appeared normal and a photograph was taken. The scope was straightened out and fully withdrawn. The cecum to anus time was 6 minutes. The patient tolerated the procedure well and was transferred to the PACU in stable condition. ENDOSCOPIC DIAGNOSES: 1. Hiatal hernia. 2. Diverticulosis. RECOMMENDATIONS: We will proceed with a laparoscopic cholecystectomy here in the near future. I will follow up on the biopsy results and get back to the patient on these. DANIAL HANCOCK /[id number]
== END 2019-12-15 13:15 | disposition home or self-care (01) ==
LOC: MW.SDS 11:10
PROVIDERS: ATTEND Surgery
DX: Z12.11 Encounter for screening for malignant neoplasm of colon (principal); K44.9 Diaphragmatic hernia without obstruction or gangrene; K57.30 Diverticulosis of large intestine without perforation or abscess without bleeding; K56.2 Volvulus; F41.9 Anxiety disorder, unspecified; I10 Essential (primary) hypertension; K80.20 Calculus of gallbladder without cholecystitis without obstruction; E66.9 Obesity, unspecified; Z98.890 Other specified postprocedural states; Z68.31 Body mass index [BMI] 31.0-31.9, adult
CPT/HCPCS: 43239; 45378; 88305; 88312; J2001; J2250; J2405; J2704; J3010; J7120; 00813

== ENCOUNTER 2019-12-24 07:59 | Day surgery (SDC) | payer BC ==
[~2019-12-24 07:59] MED LIST changes: +Bupivacaine 0.5% 10 ML SDV ONE; +Glycopyrrolate 0.2 MG/ML SDV ONE; +Ketorolac 30 MG/ML SDV ONE; +Lidocaine 2% 5 ML SDV ONE; +Midazolam 1 MG/ML 2 ML SDV ONE; +Ondansetron 4 MG/2 ML SDV ONE; +Propofol 200 MG/20 ML SDV ONE; +Rocuronium Bromide 50 MG/5 ML Syringe ONE; +ceFAZolin 2 GM in Premix Bag 1 BAG IV ONE; +fentaNYL 250 MCG/5 ML SDV ONE
--- NOTE | 2019-12-24 08:47 | PCM.PREANE ---
Preanesthetic Assessment - Anesthesia/Transfusion/Family Hx Anesthesia History: Prior Anesthesia Reaction Type of Anesthesia Reaction: Excessive Nausea/Vomiting Other Type of Anesthesia Reaction Comment: only after hysterectomy Family History of Anesthesia Reaction: No Transfusion History: No Prior Transfusion(s) Intubation History: Unknown - Review of Systems General: No Symptoms Pulmonary: No Symptoms Cardiovascular: No Symptoms Gastrointestinal: No Symptoms Neurological: No Symptoms Other: Reports: None - Physical Assessment NPO Status Date: 12/23/19 Vital Signs: Last Vital Signs Temp 97.7 F 12/24/19 08:30 Pulse 71 12/24/19 08:30 Resp 16 12/24/19 08:30 BP 126/71 12/24/19 08:30 Pulse Ox 96 12/24/19 08:30 Height: 5 ft 6 in Weight: 87.09 kg ASA Class: 2 Airway Class: Mallampati = 2 Dentition: Reports: Normal Dentition ROM/Head Extension: Full Lungs: Clear to Auscultation, Normal Respiratory Effort Cardiovascular: Regular Rate, Regular Rhythm - Allergies Allergies/Adverse Reactions: Allergies Allergy/AdvReac Type Severity Reaction Status Date / Time No Known Allergies Allergy Verified 12/18/19 08:48 - Blood Blood Available: No - Anesthesia Plan Pre-Op Medication Ordered: None - Acknowledgements Anesthesia Type Planned: General Anesthesia Pt an Appropriate Candidate for the Planned Anesthesia: Yes Alternatives and Risks of Anesthesia Discussed w Pt/Guardian: Yes Pt/Guardian Understands and Agrees with Anesthesia Plan: Yes Additional Comments: PMH: anxiety, RAD, htn, pulmonary sarcoidosis PLAN: get PreAnesthesia Questionnaire HEENT History: Reports: Other (See Below) Other HEENT History: wears glasses/contacts Cardiovascular History: Reports: None Respiratory History: Reports: None Other Respiratory History: Sarcoidosis in lung, occasional SOB, sats not lower than 97% Gastrointestinal History: Reports: None Genitourinary History: Reports: None COOK SHORT ORDER History: Reports: Musculoskeletal History: Reports: None Other Musculoskeletal History: 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 Neurological History: Reports: None Psychiatric History: Reports: Anxiety Endocrine/Metabolic History: Reports: None Hematologic History: Reports: None Immunologic History: Reports: None Oncologic (Cancer) History: Reports: None Dermatologic History: Reports: None - Infectious Disease History Infectious Disease History: Reports: None - Past Surgical History Respiratory Surgical History: Reports: Other (See Below) Other Respiratory Surgeries/Procedures: sarcoidosis GI Surgical History: Reports: Colonoscopy Musculoskeletal Surgical History: Reports: Arthroscopic Knee, Carpal Tunnel, Knee Replacement Other Musculoskeletal Surgeries/Procedures:: hx of left TKA and right CTR - SUBSTANCE USE Tobacco Use Status *Q: Never Tobacco User - HOME MEDS Home Medications: Home Meds amLODIPine [Norvasc] 5 mg PO QAM 12/09/19 [History] Scopolamine [Transderm-Scop] 1 patch TRDERM ONETIME 12/18/19 [History] - CURRENT (IN HOUSE) MEDS Current Meds: Current Medications Lactated Ringer's (Ringers, Lactated) 1,000 mls @ 125 mls/hr IV ASDIRECTED SHANNON Sodium Chloride (Saline Flush) 2.5 ml FLUSH ASDIRECTED PRN PRN Reason: Keep Vein Open Sodium Chloride (Normal Saline) 10 ml IV ASDIRECTED PRN PRN Reason: IV Use Sodium Chloride (Saline Flush) 10 ml FLUSH ASDIRECTED PRN PRN Reason: Keep Vein Open Discontinued Medications Bupivacaine HCl (Sensorcaine-Mpf 0.5%) Confirm Administered Dose 10 ml .ROUTE .STK-MED ONE Stop: 12/24/19 07:15 Fentanyl (Sublimaze) Confirm Administered Dose 250 mcg .ROUTE .STK-MED ONE Stop: 12/24/19 07:30 Glycopyrrolate (Robinul) Confirm Administered Dose 0.8 mg .ROUTE .STK-MED ONE Stop: 12/24/19 07:31 Cefazolin Sodium/Dextrose 2 gm (/ Premix) 50 mls @ 100 mls/hr IV ONETIME ONE Stop: 12/21/19 14:43 Ketorolac Tromethamine (Toradol) Confirm Administered Dose 30 mg .ROUTE .STK-MED ONE Stop: 12/24/19 07:31 Lidocaine (Xylocaine-Mpf 2%) Confirm Administered Dose 5 ml .ROUTE .STK-MED ONE Stop: 12/24/19 07:31 Midazolam HCl (Versed 1 Mg/Ml) Confirm Administered Dose 2 mg .ROUTE .STK-MED ONE Stop: 12/24/19 07:30 Ondansetron HCl (Zofran) Confirm Administered Dose 4 mg .ROUTE .STK-MED ONE Stop: 12/24/19 07:31 Propofol (Diprivan 20 Ml) Confirm Administered Dose 200 mg .ROUTE .STK-MED ONE Stop: 12/24/19 07:30 Rocuronium Franklin (Rocuronium Franklin) Confirm Administered Dose 50 mg .ROUTE .STK-MED ONE Stop: 12/24/19 07:31
[2019-12-24] MEDS ORDERED: ceFAZolin 1 GM Vial ONE (08:48)
[2019-12-24] MEDS ORDERED: Sodium Chloride 0.9% 20 ML ONE (08:48)
[2019-12-24] MEDS ORDERED: fentaNYL 100 MCG/2 ML SDV IVPUSH PRN (09:34)
[2019-12-24] MEDS ORDERED: Acetaminophen 1,000 MG in Premix Bag 1 BAG IV PRN (09:34)
[2019-12-24] MEDS ORDERED: fentaNYL 100 MCG/2 ML SDV ONE ×2 (09:42→10:24)
[2019-12-24] MEDS ORDERED: Bupivacaine 0.5% 30 ML SDV ONE (10:46)
[2019-12-24] MEDS ORDERED: Octyl 2-Cyanoacrylate 1 Tube ONE (10:47)
--- NOTE | 2019-12-24 11:18 | PCM.OPNOTE ---
- General Post-Op/Procedure Note Date of Surgery/Procedure: 12/24/19 Operative Procedure(s): Laparoscopic cholecystectomy Findings: Enlarged gallbladder containing stones. Chronic inflammation and adhesions along the proximal half of the gallbladder. Pre Op Diagnosis: Symptomatic cholelithiasis Post-Op Diagnosis: same Anesthesia Technique: General ET Tube Primary Surgeon: Erica Solano Fluid Replacement, Intraop: 1,800 Output, Urine Amount: 50 EBL in mLs: 5 Condition: Good
--- NOTE | 2019-12-24 11:44 | PCM.POSTAN ---
POST ANESTHESIA ASSESSMENT - MENTAL STATUS Mental Status: Alert, Oriented - VITAL SIGNS Vital Signs: Last Vital Signs Temp 97.7 F 12/24/19 11:17 Pulse 75 12/24/19 11:37 Resp 14 12/24/19 11:37 BP 125/65 12/24/19 11:37 Pulse Ox 94 L 12/24/19 11:37 - RESPIRATORY Respiratory Status: Respiratory Rate WNL, Airway Patent, O2 Saturation Stable - CARDIOVASCULAR CV Status: Pulse Rate WNL, Blood Pressure Stable - GASTROINTESTINAL GI Status: No Symptoms - POST OP HYDRATION Hydration Status: Adequate & Stable
[2019-12-24] MEDS ORDERED: oxyCODONE 5 MG Tab PO ONE (12:16)
--- NOTE | 2019-12-24 12:38 | OR ---
SURGEON: ERICA SOLANO MD DATE OF PROCEDURE: 12/24/2019 PREOPERATIVE DIAGNOSIS: Symptomatic cholelithiasis. POSTOPERATIVE DIAGNOSIS: Symptomatic cholelithiasis. PROCEDURE PERFORMED: Laparoscopic cholecystectomy. PRIMARY SURGEON: Erica Solano MD. ANESTHESIA: General endotracheal anesthesia. FLUIDS: 1800 mL of crystalloid. ESTIMATED BLOOD LOSS: 10 mL. URINE OUTPUT: 50 mL. FINDINGS: Grossly enlarged and chronically inflamed gallbladder. COMPLICATIONS: None. INDICATIONS: The patient is a 59-year-old female who presented to the emergency room with right upper quadrant pain. A workup revealed multiple gallstones within the gallbladder. She underwent a diagnostic EGD and colonoscopy, which revealed a small hiatal hernia as well as diverticulosis. It was felt that this pain was secondary to symptomatic cholelithiasis. The patient and I discussed the need for a laparoscopic, possible open, cholecystectomy. I explained the procedure, expected perioperative course, and the risks including bleeding, infection, or damage to surrounding structures. She verbalized understanding and wishes to proceed. PROCEDURE IN DETAIL: The patient was brought into the OR and placed on the OR table in supine position. A time-out was completed verifying the patient's name, age, date of , allergies, and procedure to be performed. General endotracheal anesthesia was induced. The left arm was tucked to the patient's side and a De Paz catheter placed. The abdomen was prepped and draped in usual standard fashion. I anesthetized the supraumbilical midline with 0.5% Marcaine plain. An 11 blade was used to make a 3 cm incision along the supraumbilical midline. Cautery was used to dissect down to the level of subcutaneous fat. I bluntly dissected down to the fascia. The fascia was elevated with Amalia's and incised sharply with Metzenbaum scissors. I entered the preperitoneal space. The patient had a large amount of fat in the preperitoneal space. This was using a hemostat and Kittner. Eventually, I was able to identify the tissue. This was elevated and incised sharply. Entry into the abdomen was palpated digitally. A 12 mm Michele trocar was inserted and the abdomen insufflated. I placed a camera into the abdomen and inspected the area underneath my initial incision. No damage to surrounding structures was noted. The patient was then placed into reverse Trendelenburg position and airplaned slightly to the left. 5 mm trocars were placed in the following locations under direct visualization; one in the epigastric area, one in the right flank, and one 2 fingerbreadths below the right subcostal margin in the midclavicular line. The dome of the gallbladder was grasped with an atraumatic grasper and elevated cranially. The gallbladder itself appeared grossly distended. There was a large amount of chronically inflamed appearing fat along the infundibulum as well as adhesions to the liver capsule and the duodenum. Using blunt dissection as well as hook cautery, I took down these adhesions. Great care was taken to avoid damage to the surrounding bowel. Once I cleared away the adhesions, I then scored the fat along the infundibulum. Using blunt dissection, I dissected this off the proximal gallbladder structures. I was able to identify what appeared to be the cystic duct. Using blunt dissection, I cleared away the fat around this area. I then carried my dissection laterally and medially along the gallbladder wall to improve my mobility along the infundibulum. The fat around the cystic triangle was edematous and inflamed. I continued my dissection and was able to dissect out the cystic duct and artery. I dissected one-third of the cystic plate. Once my critical view was achieved, a photograph was taken. The cystic duct appeared short, so I doubly clipped and ligated the cystic duct as close to the gallbladder as I possibly could. The cystic artery was doubly clipped and ligated as well. I then continued my dissection along the cystic plate. Clips were placed on a thickened piece of tissue. Once I cut through this, I could see that it was just inflamed fat. I continued my dissection up the cystic plate until the gallbladder was from its liver bed attachments. The gallbladder was then placed in an Endo Catch bag and removed through the supraumbilical port site. I inspected my operative field. There were pinpoint areas of bleeding along the cystic plate. These were controlled with electrocautery as well as Surgicel. Once hemostasis was achieved, I suctioned out any other fluid around the area. A photograph was taken of the clips on the cystic duct and artery. There was no evidence of bile leakage and the field was hemostatic. I removed the 5 mm trocars under direct visualization and allowed the abdomen to desufflate. The 12 mm trocar was removed as well. I closed the fascia at the supraumbilical port site with interrupted 0 Vicryl sutures. The subcutaneous fat layer was closed with a running 3-0 Vicryl suture as well as more superficial, interrupted 3-0 Vicryl sutures. The skin was closed with a running 4-0 Monocryl stitch. The 5 mm trocar sites were closed with interrupted 4-0 Monocryl sutures. Dermabond and sterile dressings were applied. The patient tolerated the procedure well and was transferred to the PACU in stable condition. DANIAL HANCOCK /[id number]
[2019-12-24 13:45] VITALS: BP 106/62; PULSE 72
== END 2019-12-24 14:10 | disposition home or self-care (01) ==
LOC: MW.SDS 07:59
PROVIDERS: ATTEND Surgery
DX: K80.10 Calculus of gallbladder with chronic cholecystitis without obstruction (principal); F41.9 Anxiety disorder, unspecified; I10 Essential (primary) hypertension; Z98.890 Other specified postprocedural states; Z79.899 Other long term (current) drug therapy
CPT/HCPCS: 47562; A9270; J0131; J0690; J1885; J2001; J2250; J2405; J2704; J3010; J3490; J7120

== ENCOUNTER 2022-01-04 17:52 | Emergency (ER) | payer BC, MEDICAID ==
[2022-01-04] MEDS ORDERED: diphenhydrAMINE 50 MG/ML SDV IVPUSH ONE (19:02)
[2022-01-04] MEDS ORDERED: Sodium Chloride 0.9% 1,000 ML IV ONE (19:02)
[2022-01-04] MEDS ORDERED: Ondansetron 4 MG/2 ML SDV IVPUSH ONE (19:02)
[2022-01-04 19:54] LABS: CARBON DIOXIDE,CO2 25.9 mmol/L (21.0-32.0); POTASSIUM,K 3.6 mmol/L (3.5-5.1)
[2022-01-04 21:01] LABS: HEMOGLOBIN A1C 7.4 %
[2022-01-04 21:28] VITALS: BP 137/68; PULSE 86
== END 2022-01-04 21:26 | disposition home or self-care (01) ==
LOC: MW.ED 17:52
DX: R73.9 Hyperglycemia, unspecified (principal); M19.90 Unspecified osteoarthritis, unspecified site; Z79.899 Other long term (current) drug therapy; Z20.822 Contact with and (suspected) exposure to COVID-19
CPT/HCPCS: 36415; 70450; 80053; 81003; 83036; 83735; 84484; 85025; 87635; 93005; 96361; 96374; 96375; 99284; J1200; J2405; J7030; U0002